=== PATIENT | female | born 1940 | race Caucasian/White ===

== ENCOUNTER → 2018-01-04 | Outpatient (CLI) | payer OTHER ==
[~2018-01-04] MED LIST: LEXISCAN IV ONE
== END ==
LOC: RAD 13:10
PROVIDERS: ATTEND Internal Medicine Cardiovascular Disease
DX: I65.23 Occlusion and stenosis of bilateral carotid arteries (principal); R00.1 Bradycardia, unspecified
CPT/HCPCS: 78452; 93017; A4222; A9502; J2785

== ENCOUNTER 2019-10-18 14:39 | Inpatient (IN) ==
--- NOTE | 2019-10-18 15:13 | DR.FBACK ---
HPI Time Seen Time Seen by Provider: 10/18/19 15:13 PCP Primary Care Physician: KARUNA HPI Comment HPI Comment: PATIENT IS 79YR OLD FEMALE HERE IN ER WITH SEVERE RIGHT LOWER BACK PAIN AND WEAKNESS RLE.SHE INJURED HER LOWER BACK AND SUSTAIN PELVIC FRACTURE 8 WEEKS AGO. IT IS HEALED BY MRI CHECK. SUDDENLY, SHE STARTED WITH SEVERE LOWER RIGHT BACK PAIIN THAT IS GETTING WORSE WITH NAUSEA AND VOMITING. WEAKNESS RT LOWER EXTREMITY ALSO. Complaint Chief Complaint Doctor Comments: RIGHT LOWER BACK PAIN RADIATING DOWN RIGHT LOWER EXTREMITY. Chief Complaint:: PT. HAD A PELVIC FX. 8 WEEKS AGO WHICH SHE STATES HEALED FROM BEDREST FOR 3 WEEKS. PT. HAS C/O OF RIGHT HIP AND LOWER BACK PAIN THAT RADIATES DOWN RIGHT LEG. PT. UNABLE TO WALK DUE TO PAIN. Reviewed Nurses Notes Review: Yes Source History Provided: Patient and EMS Mode of Arrival Mode of Arrival: EMS Timing Onset of Chief Complaint: 10/17/19 Duration Duration: Constant Duration: Days Location Back Pain Location: Right, BACK and Lumbar Radiation To: Right and Thigh Severity Severity: Severe Quality Quality: Sharp Context Onset: Spontaneous Circumstance: Spontaneous History of: denies Chronic Back Pain (RECENT PELVIC FRACTURE.) Modifying Factors Worsened By: Movement Associated Signs and Symptoms Back Pain Symptoms: Nausea and OTHER (RIGHT LOWER BACK PAIN.) Numbness: None, Right, Leg and Thigh Weakness: None, Right, Leg and Thigh PMH PMH Past Medical History: Yes Past Medical History: Dyslipidemia, Hypertension and Hypothyroidism Past Surgical History: Yes Family History History of Family Medical Conditions: Yes Social History Does patient currently use any type of tobacco product: No Have you used tobacco products in the last 12 months: No Type of Tobacco Use: None Does any household member use tobacco: No Alcohol Use: None Do you use any recreational Drugs:: No Lives With: Spouse Lives Where: Home infectious screening In the last 2 months have you had wt loss of >10#?: NO Have you had fever, night sweats or hemotysis?: No Have you traveled outside the country in the last 6 months?: No Isolation: Standard ROS Review of Systems Constitutional: See HPI, Weakness and Fatigue Eyes: No Symptoms Reported and See HPI ENTM: No Symptoms Reported and See HPI Respiratoy: No Symptoms Reported and See HPI; negative Short of Breath and Wheezing Cardiovascular: No Symptoms Reported and See HPI; negative Chest Pain Gastrointestinal/Abdominal: See HPI, Abdominal Pain and Nausea Genitourinary: See HPI and Pain; negative Dysuria, Frequency and Hematuria Neurological: See HPI and Weakness Musculoskeletal: See HPI, Back Pain, Muscle Pain, Pelvis, Hip and Leg Integumentary: No Symptoms Reported and See HPI; negative Change in Color, Rash and Juandice Hematologic/Lymphatic: No Symptoms Reported, See HPI, Easy Bleeding and Easy Bruising; negative Swollen Glands Endocrine: No Symptoms Reported and See HPI; negative Increased Thirst and Increased Urine Psychiatric: No Symptoms Reported and See HPI All Other Systems: Reviewed and Negative PE Vitals Vital Signs: Temp Pulse Pulse Resp BP BP Pulse Ox 10/19/19 00:00 82 145/66 96 10/18/19 23:30 88 144/63 96 10/18/19 22:30 82 104/55 97 10/18/19 22:00 79 103/51 95 10/18/19 21:45 81 115/51 95 10/18/19 20:30 89 130/59 98 10/18/19 20:12 18 10/18/19 20:00 84 117/57 97 10/18/19 19:42 18 10/18/19 19:30 83 120/56 97 10/18/19 19:00 80 121/70 96 10/18/19 18:30 84 138/83 96 10/18/19 18:00 84 17 111/52 96 10/18/19 17:34 81 16 131/58 96 10/18/19 17:00 80 16 168/72 96 10/18/19 16:11 18 10/18/19 14:45 98.8 F 81 17 124/88 97 General Limitations: No Limitations General Appearance: Alert and In No Apparent Distress Head Head Exam: Normal Inspection and Atraumatic Eyes Eye exam: Normal Appearance and PERRL; negative Scleral Icterus and Conjunctival Injection ENT ENT Exam: Normal Exam, Normal Oropharynx, Normal External Ear Exam and TM's Normal Bilaterally Chest Chest Inspection: Normal Inspection and Symmetric Chest Wall Rise; negative Tenderness Respiratory Respiratory Exam: Normal Lung Sounds Bilat; negative Accessory Muscle Use, Chest Wall Tenderness and Respiratory Distress Respiratory Exam: Bilateral: Clear to Auscultation Cardiovascular Cardiovascular Exam: Regular Rate, Normal Rhythm and Normal Heart Sounds; negative Systolic Murmur and Diastolic Murmur Abdominal Exam Abdominal Exam: Normal Bowel Sounds, Soft and Tenderness Abdominal Tenderness: RLQ, LLQ, Suprapubic and Moderate Genitourinary External Exam: Female: Deferred : Speculum Exam (Female): Deferred : Bimanual Exam (female): Deferred Extremities Extremities Exam: Tenderness; negative Full ROM Back Back Exam: Tenderness, (R) CVA Tenderness, (L) CVA Tenderness, Paraspinal Tenderness and Vertebral Tenderness Neurological Neurological Exam: Alert, Oriented X3 and CN II-XII Intact Psychiatric Psychiatric Exam: Normal Affect and Normal Mood Skin Skin Exam: Intact MDM Differential Diagnosis Differential Diagnosis: DJD, Fracture, Musculoskeletal Pain, Pyelonephritis, Strain and Urolithiasis COURSE Treatment Treatment: SEE ORDERS. TORADOL 60MG IM AND NORFLEX 60MG IM. PAIN UNCHANGE. MORPHIN 2MG IV AND ZOFRAN 4MG IV. PAIN IMPROVING. NS 1L AT 125CC/HR. ZOSYN 3.375MG IVPB AND FLAGYL 500MG IV. Consultation Consultation Comments: DISCUSS PATIENT WITH SURGEON, DR. BOYER. PCP TO ADMIT PATIENT AND WILL CONSULT AND TAKE TO SURGERY IN AM. DR. TATUM WILL ADMIT PATIENT. Education/Counseling Education/Counseling: Patient and Family Educated On: Diagnosis ROR Labs Reviewed Laboratory Results Reviewed?: Yes Result Diagrams: 10/21/19 04:19 10/21/19 04:19 Laboratory: 10/19/19 00:15 Blood Blood Culture - Final WBC 24.7 X10^3/uL (3.6-10.0) H 10/18/19 16:40 RBC 4.18 X10^6/uL (3.5-5.4) 10/18/19 16:40 Hgb 12.8 g/dL (12.0-16.0) 10/18/19 16:40 Hct 38.4 % (36.0-47.0) 10/18/19 16:40 MCV 91.8 fL (80.0-100.0) 10/18/19 16:40 MCH 30.6 pg (27.0-34.0) 10/18/19 16:40 MCHC 33.3 g/dL (33.0-35.0) 10/18/19 16:40 RDW 14.5 % (11.6-16.5) 10/18/19 16:40 Plt Count 221 X10^3/uL (150.0-450.0) 10/18/19 16:40 Plt Count Comment Adequate (ADEQUATE) 10/18/19 16:40 MPV 11.2 fL (7.4-11.0) H 10/18/19 16:40 Neut % (Auto) 87.8 % (42.0-75.0) H 10/18/19 16:40 Lymph % (Auto) 3.8 % (21.0-51.0) L 10/18/19 16:40 [place] % (Auto) 5.7 % (0.0-13.0) 10/18/19 16:40 Eos % (Auto) 2.6 % (0.9-2.9) 10/18/19 16:40 Baso % (Auto) 0.1 % (0.2-1.0) L 10/18/19 16:40 Neut # (Auto) 21.7 x10^3/uL (2.2-4.8) H 10/18/19 16:40 Lymph # (Auto) 0.9 X10^3/uL (1.3-2.9) L 10/18/19 16:40 [place] # (Auto) 1.4 x10^3/uL (0.3-0.8) H 10/18/19 16:40 Eos # (Auto) 0.6 x10^3/uL (0.0-0.2) H 10/18/19 16:40 Baso # (Auto) 0.0 X10^3/uL (0.0-0.1) 10/18/19 16:40 Absolute Nucleated RBC 0.0 /100WBC 10/18/19 16:40 Total Counted 100 10/18/19 16:40 Neutrophils % (Manual) 82 % (39-76) H 10/18/19 16:40 Band Neutrophils % 2 % (0-10) 10/18/19 16:40 Lymphocytes % (Manual) 6 % (13-43) L 10/18/19 16:40 Monocytes % (Manual) 8 % (4-9) 10/18/19 16:40 Eosinophils % (Manual) 2 % (0-6) 10/18/19 16:40 Plt Morphology Comment Normal (NORMAL) 10/18/19 16:40 RBC Morphology Normal (NORMAL) 10/18/19 16:40 Sample Site Lr 10/19/19 00:05 ABG pH 7.410 (7.35-7.45) 10/19/19 00:05 ABG pCO2 40.0 mmHg (35.0-45.0) 10/19/19 00:05 ABG pO2 72.0 mmHg (80.0-100.0) L 10/19/19 00:05 ABG HCO3 25.4 mmol/L (22-26) 10/19/19 00:05 ABG O2 Saturation 94.0 % (90-100) 10/19/19 00:05 ABG Base Excess 0.7 mmol/L (-2.0-2.0) 10/19/19 00:05 Rogerio Test P 10/19/19 00:05 A-a Gradient 28.0 mmHg 10/19/19 00:05 FiO2 21.0 10/19/19 00:05 Blood Gas Comments Haim well 10/19/19 00:05 Sodium 135 mmol/L (136-145) L 10/18/19 16:40 Corrected Sodium 136 mmol/L (136-145) 10/18/19 16:40 Potassium 3.8 mmol/L (3.5-5.1) 10/18/19 16:40 Chloride 98 mmol/L (98-107) 10/18/19 16:40 Carbon Dioxide 24.7 mmol/L (21-32) 10/18/19 16:40 BUN 35 mg/dL (7-18) H 10/18/19 16:40 Creatinine 1.23 mg/dL (0.55-1.02) H 10/18/19 16:40 Est GFR (MDRD) Af Amer 54 (>60) L 10/18/19 16:40 Est GFR (MDRD) Non-Af 45 (>60) L 10/18/19 16:40 Glucose 127 mg/dL (65-99) H 10/18/19 16:40 Lactic Acid 0.8 mmol/L (0.4-2.0) 10/19/19 00:15 Calcium 9.1 mg/dL (8.5-10.1) 10/18/19 16:40 Corrected Calcium 10.2 mg/dL (8.5-10.1) H 10/18/19 16:40 Total Bilirubin 0.70 mg/dL (0.2-1.0) 10/18/19 16:40 AST 35 Units/L (15-37) 10/18/19 16:40 ALT 52 Units/L (12-78) 10/18/19 16:40 Alkaline Phosphatase 286 Units/L (46-116) H 10/18/19 16:40 Total Protein 7.0 g/dL (6.4-8.2) 10/18/19 16:40 Albumin 2.6 g/dL (3.4-5.0) L 10/18/19 16:40 Globulin 4.4 g/dL (2.5-4.5) 10/18/19 16:40 Albumin/Globulin Ratio 0.6 Ratio (1.1-2.1) L 10/18/19 16:40 XRAY XRAY Interpreted by: Radiologist and Self (AGREE WITH RADIOLOGIST FINDINGS.) XRAY Findings: REPORT NOTED AND DISCUSSED WITH PATIENT AND FAMILY. Opioid Opioid Risk Tool Age (Rodríguez box if 16-45): No History of Preadolescent Sexual Abuse: No Total: 0 Total Score Risk Category: Low Risk Copyright: Jack MURRAY predicting aberrant behaviors Diagnosis Discharge Problem: Perforated diverticulum, Diverticulitis, Pneumopericardium Sacral fracture Qualifiers: Encounter type: initial encounter Zone of sacrum fracture: unspecified portion of sacrum Fracture type: closed Qualified Code(s): S32.10XA - Unspecified fracture of sacrum, initial encounter for closed fracture Pneumothorax Qualifiers: Pneumothorax type: unspecified pneumothorax Qualified Code(s): J93.9 - Pneumothorax, unspecified
[2019-10-18] MEDS ORDERED: NORFLEX INJ IM ONE (16:02)
[2019-10-18] MEDS ORDERED: TORADOL 60 MG VIAL IM ONE (16:03)
[2019-10-18] MEDS ORDERED: NORFLEX INJ ONE (16:04)
[2019-10-18] MEDS ORDERED: TORADOL 60 MG VIAL ONE (16:04)
--- NOTE | 2019-10-18 16:53 | CT ---
HISTORYFALL X 9 WEEKS AGO, TODAY PT UNABLE TO WALK, RT HIP AND BACK PAINSTUDYLUMBAR SPINE W/O CONCOMPARISONNoneTECHNIQUEMultiple axial images of the lumbar spine were obtained from the thoracolumbar junction to the sacrum without the administration of IV contrast. Sagittal and coronal reformats were performed and reviewed. Dose reduction techniques including Automated Exposure Control (AEC) and adjustment of mA and kV were utilized.FINDINGSOn the car cleaning supervisor film note is made of diffuse vacuum disc space narrowing in the lumbar spine. Alignment of the lumbar spine is maintained. No evidence for acute fracture or subluxation can be identified. No central canal compromise by bony osteophyte formation or soft tissue components can be identified. Mild posterior spondylosis is seen at L1-2 L2-3 L3-4 and L4-5 with marked diffuse vacuum disc space narrowing at all levels of the lumbar spine. No significant facet joint arthropathy can be appreciated. The surrounding paraspinous soft tissues are normal in their noncontrasted appearance. There is no evidence of paraspinal hematoma. There is mild central canal stenosis at L2-3 with an AP diameter of the canal of on 0.9 cm and at L4-5 with an AP diameter of the canal measuring 0.95 cm. This is due to a combination of posterior spondylosis facet hypertrophy and ligamentum flavum hypertrophy not to an acute abnormality. No focal protrusion is observed there is no evidence of a spinal hematoma. There is however perinephric air secondary 2 pneumo mediastinum extending from the lower thorax surrounding the distal esophagus and lower thoracic aorta. There is a small pneumothorax on the right as well. Air is seen dissecting in the retroperitoneum anterior to the aorta into the pelvis there is sigmoid diverticulosis but the air appears to have dissected from above and is not related to diverticulitis. A destructive bone lesion is seen in the right superior pubic ramus that appears to be pre-existing not a traumatic lesion. Air is seen in the anterior urinary bladder is well. This may be from iatrogenic catheterization but no catheter seen in place. No free fluid is seen in the abdomen or pelvis.IMPRESSIONNegative exam of the lumbar spine no acute fractures are observed. There is pre-existing spinal stenosis and marked degenerative disc disease.Of more concern is the large amount of retroperitoneal air dissecting from the posterior mediastinum. A large amount of air seen perinephric on the right and retroperitoneal extending into the pelvis. Further evaluation with a CT of the chest to evaluate chest traumatic injury or chest pathology. The air rather than the prior trauma may be the cause of the back pain. Further evaluation with CT chest abdomen pelvis is recommended. Report will be called to the ordering clinician by our director of operations support at 4:50 p.m.Electronically signed by: RANDALL MC (Oct 18, 2019 16:51:42)
[2019-10-18 16:57] LABS: BASOPHILS % (AUTO) 0.1 % (0.2-1.0); EOSINOPHILS # (AUTO) 0.6 x10^3/uL (0.0-0.2); EOSINOPHILS % (AUTO) 2.6 % (0.9-2.9); HEMATOCRIT 38.4 % (36.0-47.0); HEMOGLOBIN 12.8 g/dL (12.0-16.0); LYMPHOCYTES # (AUTO) 0.9 X10^3/uL (1.3-2.9); LYMPHOCYTES % (AUTO) 3.8 % (21.0-51.0); MEAN CORPUSCULAR HEMOGLOBIN 30.6 pg (27.0-34.0); MEAN CORPUSCULAR HGB CONC 33.3 g/dL (33.0-35.0); MEAN CORPUSCULAR VOLUME 91.8 fL (80.0-100.0); MEAN PLATELET VOLUME 11.2 fL (7.4-11.0); MONOCYTES # (AUTO) 1.4 x10^3/uL (0.3-0.8); MONOCYTES % (AUTO) 5.7 % (0.0-13.0); NEUTROPHILS # (AUTO) 21.7 x10^3/uL (2.2-4.8); NEUTROPHILS % (AUTO) 87.8 % (42.0-75.0); PLATELET COUNT 221 X10^3/uL (150.0-450.0); RED BLOOD COUNT 4.18 X10^6/uL (3.5-5.4); RED CELL DISTRIBUTION WIDTH 14.5 % (11.6-16.5); WHITE BLOOD COUNT 24.7 X10^3/uL (3.6-10.0)
[2019-10-18 17:05] LABS: ALBUMIN 2.6 g/dL (3.4-5.0); CALCIUM 9.1 mg/dL (8.5-10.1); CARBON DIOXIDE 24.7 mmol/L (21-32); COR CA(FOR HYPOALB) 10.2 mg/dL (8.5-10.1); CREATININE 1.23 mg/dL (0.55-1.02)
[2019-10-18 17:28] LABS: BAND NEUTROPHILS % 2 % (0-10)
[2019-10-18 17:29] LABS: PLATELET MORPHOLOGY COMMENT NORMAL (NORMAL)
[2019-10-18] MEDS ORDERED: MORPHINE SULFATE INJ 2 MG INJ IVP ONE (19:30)
[2019-10-18] MEDS ORDERED: ZOFRAN INJ 4 MG VIAL IVP ONE (19:31)
[2019-10-18] MEDS ORDERED: ZOFRAN INJ 4 MG VIAL ONE (19:33)
[2019-10-18] MEDS ORDERED: MORPHINE SULFATE INJ 2 MG INJ ONE (19:34)
[2019-10-18] MEDS ORDERED: NS 100 ML IV 100 ML IV ONE (20:33)
--- NOTE | 2019-10-18 22:35 | CT ---
CT chest ABDOMEN/PELVIS WITH CONIndication: "Retroperitoneal air from mediastinum"Technique: Helical CT images of the chest, abdomen and pelvis were obtained with IV contrast. Reformatted images in the coronal and sagittal planes were also generated for review.Comparison: NoneFindings:Abdomen/pelvis: There is diverticulosis of the sigmoid colon, which appears thickened with subtle pericolonic stranding, most compatible with acute diverticulitis. There is extensive retroperitoneal gas as well as pneumoperitoneum, compatible with perforation. Retroperitoneal gas extends cranially into the mediastinum and dissects along the fascial planes of the imaged lower neck. A trace right posterior basilar pneumothorax is also seen. No organized drainable collection within the abdomen or pelvis is currently identified to suggest abscess.There is gas within the urinary bladder, which could be related to recent catheterization, although underlying colovesicular fistula is not excluded. The remainder of the GI tract is without obstruction or inflammation. The liver, nondistended gallbladder, spleen, pancreas, adrenals and right kidney are unremarkable. A left pelvic kidney is noted. Uterus is absent. No significant free fluid or lymphadenopathy is identified within the abdomen or pelvis.Chest: No significant pericardial effusion is identified. Coronary atherosclerotic disease noted. The thoracic aorta and proximal great vessels are calcified without aneurysm. Central airways are patent. There is no mediastinal or bulky hilar lymphadenopathy. The lungs are essentially clear. No pleural effusion identified.Degenerative changes throughout the spine and pelvis noted. There is also a mildly displaced fracture of the right sacral ala as well as fractures of the right pubic body and inferior right pubic ramus. There is also underlying ill-defined lucency of the bone about the right pubic body fracture, for which an underlying lesion is not excluded.Impression:1. Free intraperitoneal air and extensive retroperitoneal gas, which extends cranially into the mediastinum and imaged inferior neck, the source of which is likely related to acute diverticulitis of the sigmoid colon complicated by perforation. No organized drainable fluid collections are currently identified within the chest, abdomen or pelvis to suggest abscess.2. Gas within the urinary bladder, which could be related to recent catheterization or reflect underlying colovesicular fistula. Clinical as well as lab correlation with urinalysis recommended.3. Fractures of the right sacral ala and right obturator ring as above. There is also ill-defined underlying lucency of the bone within the right pubic body, for which an underlying lesion/pathologic fracture is not entirely excluded. Continued follow-up with radiographs to ensure appropriate healing is recommended.4. Trace right basilar pneumothorax, which is likely related to pleural extension of pneumoperitoneum and retroperitoneal gas. Additional findings as above.Electronically signed by: BIA RUBIO (Oct 18, 2019 22:34:08)
[2019-10-19] MEDS ORDERED: ZOSYN VIAL 3.375 GRAMS 3.375 G in NS 100 ML IV + SPIKE MINIBAG* 100 ML IV ONE (00:01)
[2019-10-19] MEDS ORDERED: NS 1000 ML 1,000 ML ONE (00:08)
[2019-10-19] MEDS ORDERED: FLAGYL IV PREMIX 500 MG BAG 500 MG/100 ML BAG IV ONE ×2 (00:08→04:27)
[2019-10-19 00:26] LABS: ABG BASE EXCESS 0.7 mmol/L (-2.0-2.0); ABG HCO3 25.4 mmol/L (22-26)
[2019-10-19 00:27] LABS: ABG ALLEN TEST P
[2019-10-19] MEDS: NS 1000 ML 1,000 ML IV SCH ×4 (00:56→17:02)
[2019-10-19] MEDS: FLAGYL IV PREMIX 500 MG BAG 500 MG/100 ML BAG IV SCH ×5 (00:56→20:48)
[2019-10-19 01:49] LABS: BILIRUBIN,URINE NEGATIVE (NEGATIVE); BLOOD/HEMOGLOBIN,URINE 1+ (NEGATIVE); GLUCOSE, URINE NEGATIVE (NEGATIVE); KETONES,URINE NEGATIVE (NEGATIVE); LEUKOCYTE ESTERASE ,URINE 1+ (NEGATIVE); NITRITES,URINE POSITIVE (NEGATIVE); PROTEIN,URINE 2+ (NEGATIVE); UROBILINOGEN,URINE NORMAL (NORMAL)
[2019-10-19 02:08] LABS: APPEARANCE,URINE SLIGHTLY HAZY (CLEAR); BACTERIA,URINE 1+ /HPF (NEGATIVE); COLOR,URINE DARK YELLOW (YELLOW); RBC,URINE 0-2 /HPF (0-3); SQUAMOUS EPITHELIAL CELL,UR RARE /HPF (NEGATIVE)
[2019-10-19] MEDS ORDERED: ZOSYN VIAL 3.375 GRAMS IV ONE (03:05)
[2019-10-19] MEDS ORDERED: NS 100 ML IV + SPIKE MINIBAG* 100 ML IV ONE (03:05)
[2019-10-19 03:54] VITALS: BMI 30.3
[2019-10-19 06:37] LABS: ALANINE AMINOTRANSFERASE 43 Units/L (12-78); ALBUMIN 2.1 g/dL (3.4-5.0); ALKALINE PHOSPHATASE 257 Units/L (46-116); ASPARTATE AMINO TRANSFERASE 35 Units/L (15-37); BLOOD UREA NITROGEN 25 mg/dL (7-18); CALCIUM 8.7 mg/dL (8.5-10.1); CARBON DIOXIDE 23.3 mmol/L (21-32); CHLORIDE 101 mmol/L (98-107); COR CA(FOR HYPOALB) 10.2 mg/dL (8.5-10.1); CREATININE 0.94 mg/dL (0.55-1.02); MAGNESIUM 2.1 mg/dL (1.7-2.9); SODIUM 135 mmol/L (136-145); TOTAL PROTEIN 6.2 g/dL (6.4-8.2); eGFR NON BLACK RACES > 60 (>60)
[2019-10-19 06:52] LABS: BASOPHILS % (AUTO) 0.1 % (0.2-1.0); EOSINOPHILS # (AUTO) 0.5 x10^3/uL (0.0-0.2); EOSINOPHILS % (AUTO) 2.6 % (0.9-2.9); HEMATOCRIT 35.4 % (36.0-47.0); HEMOGLOBIN 11.8 g/dL (12.0-16.0); LYMPHOCYTES # (AUTO) 0.8 X10^3/uL (1.3-2.9); LYMPHOCYTES % (AUTO) 4.3 % (21.0-51.0); MEAN CORPUSCULAR HEMOGLOBIN 30.5 pg (27.0-34.0); MEAN CORPUSCULAR HGB CONC 33.3 g/dL (33.0-35.0); MEAN CORPUSCULAR VOLUME 91.7 fL (80.0-100.0); MEAN PLATELET VOLUME 11.8 fL (7.4-11.0); MONOCYTES # (AUTO) 1.1 x10^3/uL (0.3-0.8); MONOCYTES % (AUTO) 5.9 % (0.0-13.0); NEUTROPHILS # (AUTO) 16.5 x10^3/uL (2.2-4.8); NEUTROPHILS % (AUTO) 87.1 % (42.0-75.0); PLATELET COUNT 164 X10^3/uL (150.0-450.0); RED BLOOD COUNT 3.86 X10^6/uL (3.5-5.4); RED CELL DISTRIBUTION WIDTH 14.2 % (11.6-16.5)
[2019-10-19] MEDS: TOPROL XL PO SCH (08:45)
[2019-10-19] MEDS: NORVASC TAB 5 MG PO SCH (08:45)
[2019-10-19] MEDS ORDERED: SYNTHROID 100 mcg TAB PO SCH (09:00)
[2019-10-19] MEDS ORDERED: PATIENT'S HOME MEDICATION (Umeclidinium-Vilanterol [Anoro Ellipta] 1 INH) IN SCH (09:00)
--- NOTE | 2019-10-19 10:04 | RAD ---
HISTORYpneumothoraxSTUDYCHEST, 1 VIEWCOMPARISONNo priorsFINDINGSThe trachea is midline. There is subcutaneous emphysema present involving the paratracheal regions, more so on the right. There is evidence of pneumomediastinum in a small right basilar subpulmonic pneumothorax. No evidence of tension is seen. Both lungs are clear. Heart size is upper normal with aortic uncoiling. There is evidence of a pneumoperitoneum. Osseous structures are intact.IMPRESSIONPneumomediastinum, pneumoperitoneum and small subpulmonic right-sided pneumothorax without tension. Lungs are clear.Electronically signed by: MELODIE PLATA (Oct 19, 2019 10:02:20)
--- NOTE | 2019-10-19 10:27 | DR.PROGNOT ---
Hospital Progress Notes - Progress Note for Day of: Progress Note Date: 10/19/19 - Chief Complaint Chief Complaint: lower back pain . Rt leg pain extending to the foot ( needle like pain ). mild lower abdominal pain . no nausea or vomiting. WBC 19. alk phos 257. BUN/Creat 25/0.94 - Past Medical Family Social History Past Med/Fam/Surg Hx: No changes since H&P Allergies: Allergies No Known Drug Allergies Allergy (Verified 10/18/19 14:44) - Review Of Systems ROS: No change since H&P - Vital Signs Vital Signs: Temperature 98.1 F Pulse Rate [Left Brachial] 85 Pulse Rate 80 Respiratory Rate 18 Blood Pressure [Left Arm] 121/59 Blood Pressure 138/62 O2 Sat by Pulse Oximetry 96 - Physical Exam Oriented: Normal Eyes: Normal Ear: Normal Nose: Normal Throat: Normal (mild throat congestion .) Cardiovascular: Normal : Normal GI:Auscultation: Normal GI:Palpation: Normal GI: Tenderness: Other (mild to moderate lower abdomial tenderness , no rebound or rigidity , BS +) Skin: Normal (moderate to severe tenderness with LLOYD on the RT with normal ROM and sensation .) Speech Pattern: Clear, Appropriate - Laboratory and Diagnostics Result Diagrams: 10/19/19 05:53 10/19/19 05:53 Labs: Laboratory WBC 19.0 X10^3/uL (3.6-10.0) H 10/19/19 05:53 RBC 3.86 X10^6/uL (3.5-5.4) 10/19/19 05:53 Hgb 11.8 g/dL (12.0-16.0) L 10/19/19 05:53 Hct 35.4 % (36.0-47.0) L 10/19/19 05:53 MCV 91.7 fL (80.0-100.0) 10/19/19 05:53 MCH 30.5 pg (27.0-34.0) 10/19/19 05:53 MCHC 33.3 g/dL (33.0-35.0) 10/19/19 05:53 RDW 14.2 % (11.6-16.5) 10/19/19 05:53 Plt Count 164 X10^3/uL (150.0-450.0) 10/19/19 05:53 Plt Count Comment Adequate (ADEQUATE) 10/18/19 16:40 MPV 11.8 fL (7.4-11.0) H 10/19/19 05:53 Neut % (Auto) 87.1 % (42.0-75.0) H 10/19/19 05:53 Lymph % (Auto) 4.3 % (21.0-51.0) L 10/19/19 05:53 Pepin % (Auto) 5.9 % (0.0-13.0) 10/19/19 05:53 Eos % (Auto) 2.6 % (0.9-2.9) 10/19/19 05:53 Baso % (Auto) 0.1 % (0.2-1.0) L 10/19/19 05:53 Neut # (Auto) 16.5 x10^3/uL (2.2-4.8) H 10/19/19 05:53 Lymph # (Auto) 0.8 X10^3/uL (1.3-2.9) L 10/19/19 05:53 Pepin # (Auto) 1.1 x10^3/uL (0.3-0.8) H 10/19/19 05:53 Eos # (Auto) 0.5 x10^3/uL (0.0-0.2) H 10/19/19 05:53 Baso # (Auto) 0.0 X10^3/uL (0.0-0.1) 10/19/19 05:53 Absolute Nucleated RBC 0.0 /100WBC 10/19/19 05:53 Total Counted 100 10/18/19 16:40 Neutrophils % (Manual) 82 % (39-76) H 10/18/19 16:40 Band Neutrophils % 2 % (0-10) 10/18/19 16:40 Lymphocytes % (Manual) 6 % (13-43) L 10/18/19 16:40 Monocytes % (Manual) 8 % (4-9) 10/18/19 16:40 Eosinophils % (Manual) 2 % (0-6) 10/18/19 16:40 Plt Morphology Comment Normal (NORMAL) 10/18/19 16:40 RBC Morphology Normal (NORMAL) 10/18/19 16:40 PT 15.3 SECONDS (11.8-14.3) 10/19/19 05:53 INR Target Range - 10/19/19 05:53 INR 1.26 (0.8-1.3) 10/19/19 05:53 APTT 24.5 SECONDS (22.9-36.5) 10/19/19 05:53 PTT Comment - 10/19/19 05:53 Sample Site Lr 10/19/19 00:05 ABG pH 7.410 (7.35-7.45) 10/19/19 00:05 ABG pCO2 40.0 mmHg (35.0-45.0) 10/19/19 00:05 ABG pO2 72.0 mmHg (80.0-100.0) L 10/19/19 00:05 ABG HCO3 25.4 mmol/L (22-26) 10/19/19 00:05 ABG O2 Saturation 94.0 % (90-100) 10/19/19 00:05 ABG Base Excess 0.7 mmol/L (-2.0-2.0) 10/19/19 00:05 Rogerio Test P 10/19/19 00:05 A-a Gradient 28.0 mmHg 10/19/19 00:05 FiO2 21.0 10/19/19 00:05 Blood Gas Comments Haim well 10/19/19 00:05 Sodium 135 mmol/L (136-145) L 10/19/19 05:53 Corrected Sodium TNP 10/19/19 05:53 Potassium 3.9 mmol/L (3.5-5.1) 10/19/19 05:53 Chloride 101 mmol/L (98-107) 10/19/19 05:53 Carbon Dioxide 23.3 mmol/L (21-32) 10/19/19 05:53 BUN 25 mg/dL (7-18) H 10/19/19 05:53 Creatinine 0.94 mg/dL (0.55-1.02) 10/19/19 05:53 Est GFR (MDRD) Af Amer > 60 (>60) 10/19/19 05:53 Est GFR (MDRD) Non-Af > 60 (>60) 10/19/19 05:53 Glucose 91 mg/dL (65-99) 10/19/19 05:53 Lactic Acid 0.8 mmol/L (0.4-2.0) 10/19/19 00:15 Calcium 8.7 mg/dL (8.5-10.1) 10/19/19 05:53 Corrected Calcium 10.2 mg/dL (8.5-10.1) H 10/19/19 05:53 Magnesium 2.1 mg/dL (1.7-2.9) 10/19/19 05:53 Total Bilirubin 0.60 mg/dL (0.2-1.0) 10/19/19 05:53 AST 35 Units/L (15-37) 10/19/19 05:53 ALT 43 Units/L (12-78) 10/19/19 05:53 Alkaline Phosphatase 257 Units/L (46-116) H 10/19/19 05:53 Total Protein 6.2 g/dL (6.4-8.2) L 10/19/19 05:53 Albumin 2.1 g/dL (3.4-5.0) L 10/19/19 05:53 Globulin 4.1 g/dL (2.5-4.5) 10/19/19 05:53 Albumin/Globulin Ratio 0.5 Ratio (1.1-2.1) L 10/19/19 05:53 Specimen Type Catherized urine 10/19/19 01:40 Urine Color Dark yellow (YELLOW) 10/19/19 01:40 Urine Appearance Slightly hazy (CLEAR) 10/19/19 01:40 Urine pH 6.0 (5.0 - 8.0) 10/19/19 01:40 Ur Specific [place] 1.010 (1.000-1.030) 10/19/19 01:40 Urine Protein 2+ (NEGATIVE) 10/19/19 01:40 Urine Glucose (UA) Negative (NEGATIVE) 10/19/19 01:40 Urine Ketones Negative (NEGATIVE) 10/19/19 01:40 Urine Occult Blood 1+ (NEGATIVE) 10/19/19 01:40 Urine Nitrite Positive (NEGATIVE) 10/19/19 01:40 Urine Bilirubin Negative (NEGATIVE) 10/19/19 01:40 Urine Urobilinogen Normal (NORMAL) 10/19/19 01:40 Ur Leukocyte Esterase 1+ (NEGATIVE) 10/19/19 01:40 Urine RBC 0-2 /HPF (0-3) 10/19/19 01:40 Urine WBC 3-5 /HPF (0-5) 10/19/19 01:40 Ur Squamous Epith Cells Rare /HPF (NEGATIVE) 10/19/19 01:40 Urine Bacteria 1+ /HPF (NEGATIVE) 10/19/19 01:40 Ur Culture Indicated? Yes/culture set up 10/19/19 01:40 - Assessment and Plan 1: severe lower back pain ,. radiculopathy Rt leg . large pneunomoretroperitoneam and pneumomediastinum. possible diverticulitis and questiobable perforation . no peritonitis now . will keep on IV ATB and close observation . if having more abdominal pain with peritonitis will proceed with colostomy .
[2019-10-19] MEDS ORDERED: ZANAFLEX PO PRN (13:59)
--- NOTE | 2019-10-19 14:02 | DR.H&P ---
H&P - History & Physical for Day of: H&P Date: 10/19/19 - Chief Complaint Chief Complaint: severe lower back pain, right lower abd, hip, leg pain - History of Present Illness History of Present Illness: PT IS 79 WF ER ADMISSION AFTER PRESENTING WITH CO HAD A PELVIC FX. 8 WEEKS AGO WHICH SHE STATES HEALED FROM BEDREST FOR 3 WEEKS. PT. HAS C/O OF RIGHT HIP AND LOWER BACK PAIN THAT RADIATES DOWN RIGHT LEG. PT. UNABLE TO WALK DUE TO PAIN. PT REPORTS SHE HAS NOT HAD BM SINCE OVER 1 WEEK AGO. PT HAD PMH OF HTN, PREVIOUS SMOKER QUIT [address] A[address] PT HAD [address] IN ER REVEALING DIVERTICULITIS WITH POSSIBLE PERFORATION. PT ADMITTED TO ICU, DR BOYER CONSULTED - Past Medical History Past Medical History: Hypertension, Dyslipidemia, Hypothyroidism - Past Surgical History Surgical History: Carotid Endarterectomy, Mastectomy, Other - Family History Family Medical History: Diabetes Mellitus, Cancer, Hypertension - Social History Does patient currently use any type of tobacco product: No Have you used tobacco products in the last 12 months: No Type of Tobacco Use: None Does any household member use tobacco: No Alcohol Use: None Drug Use: None - Medications Home Medications: No Known Drug Allergies Allergy (Verified 10/18/19 14:44) CONTINUE taking the following medications acetaminophen-codeine 1 tab PO Q6HR PRN 10/18/19 [History] amlodipine 5 mg PO DAILY 10/18/19 [History] atorvastatin 80 mg PO HS 10/18/19 [History] levothyroxine [Synthroid] 0.1 mcg PO DAILY 10/18/19 [History] metoprolol succinate 50 mg PO DAILY 10/18/19 [History] tramadol 50 mg PO QID PRN 10/18/19 [History] umeclidinium-vilanterol [Anoro Ellipta] 1 inh INHALATION DAILY 10/18/19 [History] - Review of Systems Constitutional: Weakness, Malaise ENT: No Symptoms Reported Respiratory: No Symptoms Reported Cardiovascular: No Symptoms Reported Gastrointestinal: Nausea, Abdominal Pain, Constipation Genitourinary: No Symptoms Reported Musculoskeletal: Back Pain, Leg Pain Skin: No Symptoms Reported Neurological: No Symptoms Reported - Physical Exam Vital Signs: Temperature 98.1 F Pulse Rate [Left Brachial] 85 Pulse Rate 77 Respiratory Rate 18 Blood Pressure [Left Arm] 121/59 Blood Pressure 136/61 O2 Sat by Pulse Oximetry 97 Oriented: Normal Eyes: Normal Ear: Normal Nose: Normal Throat: Normal Respiratory: Wheezes Throughout (MILD UPPER EXPIRATORY WHEEZES), RLL Diminished, LLL Diminished Cardiovascular: Normal : Normal Auscultation: Bowel Sounds: Normal Palpation: Normal Tenderness: Diffuse, RLQ, LUQ Skin: Decreased Turgur Musculoskeletal: Right, Leg, Back:Thoracic, Back:Lumbar Psychiatric: Anxiety Affect: Anxious Speech Pattern: Clear, Appropriate - Assessment/Plan (1) Acute diverticulitis Status: Acute Plan: NPO UNTIL SURGICAL CONSULT. BP CONTROL, CARDIAC MONITORING. VERIFY HOME MEDICATION, GENTLE IV HYDRATION, PAIN CONTROL. AM LABS, CBC CMP CXR. CT ABD PELVIS ON ADMISSION, BEDREST (2) Pelvic fracture Status: Acute (3) Degenerative joint disease (DJD) of lumbar spine Status: Acute (4) Hypertension Status: Acute - Allergies Allergies/Adverse Reactions: Allergies Allergy/AdvReac Type Severity Reaction Status Date / Time No Known Drug Allergies Allergy Verified 10/18/19 14:44
[2019-10-19] MEDS: ZOFRAN INJ 4 MG VIAL IVP PRN (14:51)
[2019-10-19] MEDS: MORPHINE SULFATE INJ 2 MG INJ IVP PRN (14:51)
[2019-10-19] MEDS: SYNTHROID 100 mcg TAB PO SCH (16:54)
[2019-10-19] MEDS ORDERED: TYLENOL 325 MG TAB PO PRN (20:32)
[2019-10-19] MEDS ORDERED: TYLENOL 325 MG TAB PO ONE (20:34)
[2019-10-19] MEDS: LIPITOR TAB 40 MG PO SCH (20:48)
[2019-10-20] MEDS: ZOFRAN INJ 4 MG VIAL IVP PRN ×2 (00:17→08:58)
[2019-10-20] MEDS: FLAGYL IV PREMIX 500 MG BAG 500 MG/100 ML BAG IV SCH ×4 (02:55→21:36)
[2019-10-20] MEDS: NS 1000 ML 1,000 ML IV SCH ×4 (05:30→18:30)
[2019-10-20 05:34] LABS: BASOPHILS % (AUTO) 0.2 % (0.2-1.0); EOSINOPHILS # (AUTO) 0.2 x10^3/uL (0.0-0.2); EOSINOPHILS % (AUTO) 1.1 % (0.9-2.9); HEMATOCRIT 32.3 % (36.0-47.0); HEMOGLOBIN 10.9 g/dL (12.0-16.0); LYMPHOCYTES # (AUTO) 0.7 X10^3/uL (1.3-2.9); LYMPHOCYTES % (AUTO) 4.2 % (21.0-51.0); MEAN CORPUSCULAR HEMOGLOBIN 30.1 pg (27.0-34.0); MEAN CORPUSCULAR HGB CONC 33.8 g/dL (33.0-35.0); MEAN CORPUSCULAR VOLUME 89.2 fL (80.0-100.0); MEAN PLATELET VOLUME 10.1 fL (7.4-11.0); MONOCYTES # (AUTO) 0.9 x10^3/uL (0.3-0.8); MONOCYTES % (AUTO) 5.3 % (0.0-13.0); NEUTROPHILS # (AUTO) 14.5 x10^3/uL (2.2-4.8); NEUTROPHILS % (AUTO) 89.2 % (42.0-75.0); PLATELET COUNT 227 X10^3/uL (150.0-450.0); RED BLOOD COUNT 3.62 X10^6/uL (3.5-5.4); RED CELL DISTRIBUTION WIDTH 14.2 % (11.6-16.5); WHITE BLOOD COUNT 16.2 X10^3/uL (3.6-10.0)
[2019-10-20 05:45] LABS: ALANINE AMINOTRANSFERASE 39 Units/L (12-78); ALBUMIN 1.9 g/dL (3.4-5.0); ALKALINE PHOSPHATASE 219 Units/L (46-116); ASPARTATE AMINO TRANSFERASE 26 Units/L (15-37); BLOOD UREA NITROGEN 15 mg/dL (7-18); CALCIUM 8.4 mg/dL (8.5-10.1); CARBON DIOXIDE 26.1 mmol/L (21-32); CHLORIDE 103 mmol/L (98-107); COR CA(FOR HYPOALB) 10.1 mg/dL (8.5-10.1); COR NA(FOR HYPERGLY) 139 mmol/L (136-145); CREATININE 0.72 mg/dL (0.55-1.02); SODIUM 139 mmol/L (136-145); TOTAL PROTEIN 5.6 g/dL (6.4-8.2); eGFR NON BLACK RACES > 60 (>60)
--- NOTE | 2019-10-20 06:24 | RAD ---
HISTORYFollow-up pneumothoraxSTUDYCHEST, 1 [id number] heart is within normal limits in size. The aorta is calcified. No congestive heart failure or infiltrates identified. Residual pneumomediastinum is identified as is some subcutaneous emphysema in the right lateral neck. Small right basilar pneumothorax is still present. Bony thorax is unremarkable.IMPRESSIONNo significant change from the prior examinationElectronically signed by: JESUSITA OLIVAS (Oct 20, 2019 06:23:14)
[2019-10-20] MEDS ORDERED: KLOR-CON PO PRN (06:34)
[2019-10-20] MEDS ORDERED: POTASSIUM CHLORIDE LIQ 20 MEQ UDC PO PRN (06:34)
[2019-10-20] MEDS ORDERED: K-DUR TAB 20 MEQ PO PRN (06:34)
[2019-10-20] MEDS ORDERED: POTASSIUM CHL 60 MEQ/NS 0.45% 500 ML IV PRN (06:34)
[2019-10-20] MEDS ORDERED: POTASSIUM CHL 40 MEQ/NS 0.45% 500 ML IV PRN (06:34)
[2019-10-20] MEDS ORDERED: MICRO K EXTEN CAP 10 MEQ PO PRN (06:34)
[2019-10-20] MEDS: MAGNESIUM SULFATE 1 GRAM/100 mL PREMIX 1 GM/100 ML BAG IV PRN ×2 (08:35→10:28)
[2019-10-20] MEDS ORDERED: DIPRIVAN VIAL ONE (09:05)
[2019-10-20] MEDS ORDERED: XYLOCAINE 1 % (PLAIN) ONE (09:05)
[2019-10-20] MEDS ORDERED: APRESOLINE INJ 20 MG VIAL IVP PRN (09:34)
[2019-10-20] MEDS ORDERED: LOVENOX INJ 40 MG SYR SC SCH (10:00)
--- NOTE | 2019-10-20 10:04 | RAD ---
HISTORYPERFORATED DIVERTICULITIS right sacral fractureSTUDYKUBCOMPARISONCT scan of the abdomen and pelvis done 10/18/2019.FINDINGSThere is again evidence of pneumoperitoneum. A small right basilar pneumothorax is present. There is again evidence of pneumo mediastinum. Contrast material is present within the colon. No evidence of bowel obstruction is seen. There is partial obscuration of the right sacral fracture. Degenerative changes are present involving the lower lumbar spine.IMPRESSIONPneumoperitoneum and right basilar pneumothorax. There is evidence of pneumomediastinum.There is some residual contrast material present within the colon. No bowel obstruction is seen.Electronically signed by: MELODIE PLATA (Oct 20, 2019 10:03:48)
[2019-10-20] MEDS: PROTONIX INJ 40 MG VIAL IVP SCH ×2 (10:21→21:36)
[2019-10-20] MEDS: NORVASC TAB 5 MG PO SCH (10:43)
[2019-10-20] MEDS: TOPROL XL PO SCH (10:43)
--- NOTE | 2019-10-20 11:16 | DR.PROGNOT ---
Hospital Progress Notes - Progress Note for Day of: Progress Note Date: 10/20/19 - Chief Complaint Chief Complaint: had several episodes of vomiting last night . c/o mild abdominal pain . had normal BM last night , no bleeding . WBC 16.2. K 3.2. BUN/Creat normal . KUB still showing free air and pneumoretroperitonium . - Past Medical Family Social History Past Med/Fam/Surg Hx: No changes since H&P Allergies: Allergies No Known Drug Allergies Allergy (Verified 10/18/19 14:44) - Review Of Systems ROS: No change since H&P - Vital Signs Vital Signs: Temperature 97.0 F Pulse Rate [Left Brachial] 85 Pulse Rate 98 Respiratory Rate 26 Blood Pressure [Left Arm] 121/59 Blood Pressure 196/81 O2 Sat by Pulse Oximetry 95 - Physical Exam Oriented: Normal Eyes: Normal Ear: Normal Nose: Normal Throat: Normal Cardiovascular: Normal : Normal GI:Auscultation: Normal GI:Palpation: Normal GI: Tenderness: Diffuse (mild diffuse abdominal tenderness , no rebound or rigidity , BS +), RLQ, LUQ Skin: Decreased Turgur Musculoskeletal: Right, Leg, Back:Thoracic, Back:Lumbar Psychiatric: Anxiety Affect: Anxious Speech Pattern: Clear, Appropriate - Laboratory and Diagnostics Result Diagrams: 10/20/19 05:10 10/20/19 05:10 Labs: 10/19/19 01:40 Urine,Catheterized Urine Culture - Preliminary Laboratory WBC 16.2 X10^3/uL (3.6-10.0) H 10/20/19 05:10 RBC 3.62 X10^6/uL (3.5-5.4) 10/20/19 05:10 Hgb 10.9 g/dL (12.0-16.0) L 10/20/19 05:10 Hct 32.3 % (36.0-47.0) L 10/20/19 05:10 MCV 89.2 fL (80.0-100.0) 10/20/19 05:10 MCH 30.1 pg (27.0-34.0) 10/20/19 05:10 MCHC 33.8 g/dL (33.0-35.0) 10/20/19 05:10 RDW 14.2 % (11.6-16.5) 10/20/19 05:10 Plt Count 227 X10^3/uL (150.0-450.0) 10/20/19 05:10 Plt Count Comment Adequate (ADEQUATE) 10/18/19 16:40 MPV 10.1 fL (7.4-11.0) 10/20/19 05:10 Neut % (Auto) 89.2 % (42.0-75.0) H 10/20/19 05:10 Lymph % (Auto) 4.2 % (21.0-51.0) L 10/20/19 05:10 [place] % (Auto) 5.3 % (0.0-13.0) 10/20/19 05:10 Eos % (Auto) 1.1 % (0.9-2.9) 10/20/19 05:10 Baso % (Auto) 0.2 % (0.2-1.0) 10/20/19 05:10 Neut # (Auto) 14.5 x10^3/uL (2.2-4.8) H 10/20/19 05:10 Lymph # (Auto) 0.7 X10^3/uL (1.3-2.9) L 10/20/19 05:10 [place] # (Auto) 0.9 x10^3/uL (0.3-0.8) H 10/20/19 05:10 Eos # (Auto) 0.2 x10^3/uL (0.0-0.2) 10/20/19 05:10 Baso # (Auto) 0.0 X10^3/uL (0.0-0.1) 10/20/19 05:10 Absolute Nucleated RBC 0.0 /100WBC 10/20/19 05:10 Total Counted 100 10/18/19 16:40 Neutrophils % (Manual) 82 % (39-76) H 10/18/19 16:40 Band Neutrophils % 2 % (0-10) 10/18/19 16:40 Lymphocytes % (Manual) 6 % (13-43) L 10/18/19 16:40 Monocytes % (Manual) 8 % (4-9) 10/18/19 16:40 Eosinophils % (Manual) 2 % (0-6) 10/18/19 16:40 Plt Morphology Comment Normal (NORMAL) 10/18/19 16:40 RBC Morphology Normal (NORMAL) 10/18/19 16:40 PT 15.3 SECONDS (11.8-14.3) 10/19/19 05:53 INR Target Range - 10/19/19 05:53 INR 1.26 (0.8-1.3) 10/19/19 05:53 APTT 24.5 SECONDS (22.9-36.5) 10/19/19 05:53 PTT Comment - 10/19/19 05:53 Sample Site Lr 10/19/19 00:05 ABG pH 7.410 (7.35-7.45) 10/19/19 00:05 ABG pCO2 40.0 mmHg (35.0-45.0) 10/19/19 00:05 ABG pO2 72.0 mmHg (80.0-100.0) L 10/19/19 00:05 ABG HCO3 25.4 mmol/L (22-26) 10/19/19 00:05 ABG O2 Saturation 94.0 % (90-100) 10/19/19 00:05 ABG Base Excess 0.7 mmol/L (-2.0-2.0) 10/19/19 00:05 Rogerio Test P 10/19/19 00:05 A-a Gradient 28.0 mmHg 10/19/19 00:05 FiO2 21.0 10/19/19 00:05 Blood Gas Comments Haim well 10/19/19 00:05 Sodium 139 mmol/L (136-145) 10/20/19 05:10 Corrected Sodium 139 mmol/L (136-145) 10/20/19 05:10 Potassium 3.2 mmol/L (3.5-5.1) L 10/20/19 05:10 Chloride 103 mmol/L (98-107) 10/20/19 05:10 Carbon Dioxide 26.1 mmol/L (21-32) 10/20/19 05:10 BUN 15 mg/dL (7-18) 10/20/19 05:10 Creatinine 0.72 mg/dL (0.55-1.02) 10/20/19 05:10 Est GFR (MDRD) Af Amer > 60 (>60) 10/20/19 05:10 Est GFR (MDRD) Non-Af > 60 (>60) 10/20/19 05:10 Glucose 120 mg/dL (65-99) H 10/20/19 05:10 Lactic Acid 0.8 mmol/L (0.4-2.0) 10/19/19 00:15 Calcium 8.4 mg/dL (8.5-10.1) L 10/20/19 05:10 Corrected Calcium 10.1 mg/dL (8.5-10.1) 10/20/19 05:10 Magnesium 1.7 mg/dL (1.7-2.9) 10/20/19 05:10 Total Bilirubin 0.60 mg/dL (0.2-1.0) 10/20/19 05:10 AST 26 Units/L (15-37) 10/20/19 05:10 ALT 39 Units/L (12-78) 10/20/19 05:10 Alkaline Phosphatase 219 Units/L (46-116) H 10/20/19 05:10 Total Protein 5.6 g/dL (6.4-8.2) L 10/20/19 05:10 Albumin 1.9 g/dL (3.4-5.0) L 10/20/19 05:10 Globulin 3.7 g/dL (2.5-4.5) 10/20/19 05:10 Albumin/Globulin Ratio 0.5 Ratio (1.1-2.1) L 10/20/19 05:10 Specimen Type Catherized urine 10/19/19 01:40 Urine Color Dark yellow (YELLOW) 10/19/19 01:40 Urine Appearance Slightly hazy (CLEAR) 10/19/19 01:40 Urine pH 6.0 (5.0 - 8.0) 10/19/19 01:40 Ur Specific [place] 1.010 (1.000-1.030) 10/19/19 01:40 Urine Protein 2+ (NEGATIVE) 10/19/19 01:40 Urine Glucose (UA) Negative (NEGATIVE) 10/19/19 01:40 Urine Ketones Negative (NEGATIVE) 10/19/19 01:40 Urine Occult Blood 1+ (NEGATIVE) 10/19/19 01:40 Urine Nitrite Positive (NEGATIVE) 10/19/19 01:40 Urine Bilirubin Negative (NEGATIVE) 10/19/19 01:40 Urine Urobilinogen Normal (NORMAL) 10/19/19 01:40 Ur Leukocyte Esterase 1+ (NEGATIVE) 10/19/19 01:40 Urine RBC 0-2 /HPF (0-3) 10/19/19 01:40 Urine WBC 3-5 /HPF (0-5) 10/19/19 01:40 Ur Squamous Epith Cells Rare /HPF (NEGATIVE) 10/19/19 01:40 Urine Bacteria 1+ /HPF (NEGATIVE) 10/19/19 01:40 Ur Culture Indicated? Yes/culture set up 10/19/19 01:40 - Assessment and Plan 1: severe nausea and vomiting coffee ground material last night . severe lower back pain ,. radiculopathy Rt leg . large pneunomoretroperitoneam and pneumomediastinum. possible diverticulitis and questiobable perforation . with the vomiting and possibility of DU will do EGD today . will keep on IV ATB and close observation . - Problem Patient Problems: Patient Problems Acute diverticulitis (Acute) K57.92 Pelvic fracture (Acute) S32.9XXA Degenerative joint disease (DJD) of lumbar spine (Acute) M47.816 Hypertension (Acute) I10
[2019-10-20] MEDS ORDERED: DIPRIVAN VIAL 40 ML ONE (11:37)
--- NOTE | 2019-10-20 13:22 | RAD ---
HISTORYNG tube placementSTUDYKUBCOMPARISONNoneFINDINGSThere is a nasogastric tube with its tip and side hole within the stomach. The abdominal gas pattern is nonspecific.IMPRESSIONNG tube and side hole in the expected position of the stomachElectronically signed by: JESUSITA OLIVAS (Oct 20, 2019 13:21:01)
[2019-10-20] MEDS: ZOSYN VIAL 3.375 GRAMS 3.375 G in NS 100 ML IV + SPIKE MINIBAG* 100 ML IV SCH ×3 (14:38→21:50)
[2019-10-20 14:49] LABS: GASTRIC OCCULT BLOOD POSITIVE (NEGATIVE)
[2019-10-20 16:29] LABS: HEMATOCRIT 30.8 % (36.0-47.0); HEMOGLOBIN 10.2 g/dL (12.0-16.0)
[2019-10-20] MEDS: SYNTHROID 100 mcg TAB PO SCH (17:24)
[2019-10-20] MEDS ORDERED: XYLOCAINE 2 % (PLAIN) ONE (17:50)
[2019-10-20] MEDS: MORPHINE SULFATE INJ 2 MG INJ IVP PRN (18:20)
[2019-10-20 18:41] LABS: BASOPHILS % (AUTO) 0.3 % (0.2-1.0); EOSINOPHILS # (AUTO) 0.2 x10^3/uL (0.0-0.2); EOSINOPHILS % (AUTO) 1.5 % (0.9-2.9); HEMATOCRIT 26.2 % (36.0-47.0); HEMOGLOBIN 8.8 g/dL (12.0-16.0); LYMPHOCYTES # (AUTO) 0.9 X10^3/uL (1.3-2.9); LYMPHOCYTES % (AUTO) 7.3 % (21.0-51.0); MEAN CORPUSCULAR HEMOGLOBIN 30.3 pg (27.0-34.0); MEAN CORPUSCULAR HGB CONC 33.7 g/dL (33.0-35.0); MEAN CORPUSCULAR VOLUME 90.1 fL (80.0-100.0); MEAN PLATELET VOLUME 9.7 fL (7.4-11.0); MONOCYTES # (AUTO) 0.8 x10^3/uL (0.3-0.8); MONOCYTES % (AUTO) 6.4 % (0.0-13.0); NEUTROPHILS % (AUTO) 84.5 % (42.0-75.0); PLATELET COUNT 214 X10^3/uL (150.0-450.0); RED BLOOD COUNT 2.91 X10^6/uL (3.5-5.4); RED CELL DISTRIBUTION WIDTH 14.2 % (11.6-16.5)
[2019-10-20 18:57] LABS: ALANINE AMINOTRANSFERASE 32 Units/L (12-78); ALBUMIN 1.6 g/dL (3.4-5.0); ALKALINE PHOSPHATASE 181 Units/L (46-116); ASPARTATE AMINO TRANSFERASE 27 Units/L (15-37); BLOOD UREA NITROGEN 19 mg/dL (7-18); CALCIUM 7.8 mg/dL (8.5-10.1); CARBON DIOXIDE 27.5 mmol/L (21-32); CHLORIDE 106 mmol/L (98-107); COR CA(FOR HYPOALB) 9.7 mg/dL (8.5-10.1); COR NA(FOR HYPERGLY) 142 mmol/L (136-145); SODIUM 141 mmol/L (136-145); TOTAL PROTEIN 4.9 g/dL (6.4-8.2); eGFR NON BLACK RACES > 60 (>60)
[2019-10-20] MEDS ORDERED: DEMEROL INJ IVP PRN (19:00)
[2019-10-20] MEDS: K-RIDER 10 MEQ/NS 100 ML 10 MEQ/100 ML BAG IV PRN ×4 (19:50→22:50)
--- NOTE | 2019-10-20 20:04 | RAD ---
CHEST, 1 VIEWHISTORY: CENTRAL LINE PLACEMENTStudy: Single view of the chest.Comparison: 10/20/2019Findings:The cardiomediastinal silhouette is normal. No focal consolidations, pleural effusions or pneumothorax. There appears to be a new NG tube terminating in the midesophagus a right central catheter terminates over the expected area of the distal SVC.IMPRESSION:1. New NG tube terminating in the mid esophagus. Recommend advancement.2. A right central catheter terminating over the expected area of the distal SVC.Electronically signed by: SHONDA WHIPPLE (Oct 20, 2019 20:02:06)
[2019-10-20] MEDS: LIPITOR TAB 40 MG PO SCH (21:00)
--- NOTE | 2019-10-20 21:46 | RAD ---
KUBHISTORY: NG TUBE PLACEMENTStudy: Flat view views of the abdomenComparison:NoneFindings:There is a normal bowel gas pattern.No free air..NG tube coiled within the stomach. No acute bony abnormalities. Redemonstration of pneumoperitoneum.IMPRESSION:1. NG tube coiled within the stomach.Electronically signed by: SHONDA WHIPPLE (Oct 20, 2019 21:44:03)
[2019-10-21] MEDS: NS 1000 ML 1,000 ML IV SCH (01:40)
[2019-10-21] MEDS: FLAGYL IV PREMIX 500 MG BAG 500 MG/100 ML BAG IV SCH ×3 (02:41→17:36)
[2019-10-21 05:18] LABS: BASOPHILS # (AUTO) 0.1 X10^3/uL (0.0-0.1); EOSINOPHILS # (AUTO) 0.2 x10^3/uL (0.0-0.2); HEMATOCRIT 23.9 % (36.0-47.0)
[2019-10-21 05:25] LABS: BASOPHILS % (AUTO) 0.5 % (0.2-1.0); EOSINOPHILS % (AUTO) 1.6 % (0.9-2.9); LYMPHOCYTES # (AUTO) 1.1 X10^3/uL (1.3-2.9); LYMPHOCYTES % (AUTO) 7.9 % (21.0-51.0); MEAN CORPUSCULAR HEMOGLOBIN 30.2 pg (27.0-34.0); MEAN CORPUSCULAR HGB CONC 33.5 g/dL (33.0-35.0); MEAN CORPUSCULAR VOLUME 90.3 fL (80.0-100.0); MEAN PLATELET VOLUME 11.3 fL (7.4-11.0); MONOCYTES # (AUTO) 1.1 x10^3/uL (0.3-0.8); MONOCYTES % (AUTO) 7.3 % (0.0-13.0); NEUTROPHILS % (AUTO) 82.7 % (42.0-75.0); PLATELET COUNT 189 X10^3/uL (150.0-450.0); RED BLOOD COUNT 2.65 X10^6/uL (3.5-5.4); RED CELL DISTRIBUTION WIDTH 14.3 % (11.6-16.5); WHITE BLOOD COUNT 14.5 X10^3/uL (3.6-10.0)
[2019-10-21 05:45] LABS: ALANINE AMINOTRANSFERASE 33 Units/L (12-78); ALBUMIN 1.6 g/dL (3.4-5.0); ALKALINE PHOSPHATASE 165 Units/L (46-116); ASPARTATE AMINO TRANSFERASE 32 Units/L (15-37); BLOOD UREA NITROGEN 23 mg/dL (7-18); CALCIUM 7.8 mg/dL (8.5-10.1); CARBON DIOXIDE 25.5 mmol/L (21-32); CHLORIDE 108 mmol/L (98-107); COR CA(FOR HYPOALB) 9.7 mg/dL (8.5-10.1); CREATININE 0.81 mg/dL (0.55-1.02); SODIUM 143 mmol/L (136-145); TOTAL PROTEIN 4.7 g/dL (6.4-8.2); eGFR NON BLACK RACES > 60 (>60)
[2019-10-21] MEDS ORDERED: CHLORASEPTIC SPRAY MT PRN (06:14)
[2019-10-21] MEDS: ZOFRAN INJ 4 MG VIAL IVP PRN ×2 (07:20→16:25)
[2019-10-21] MEDS ORDERED: NS 500 ML IV 500 ML IV ONE (08:49)
--- NOTE | 2019-10-21 09:22 | DR.PROGNOT ---
Hospital Progress Notes - Progress Note for Day of: Progress Note Date: 10/21/19 - Chief Complaint Chief Complaint: still having bloody drainage via NGT . had several episodes of coffee ground emesis last night and melanotic stool. no abdominal pain . Hgb is 8.0. WBC 14.5. lytes normal . BUN/Creat 23/0.8 . temp 98.2. KUB still showing free air and pneumoretroperitonium . - Past Medical Family Social History Past Med/Fam/Surg Hx: No changes since H&P Allergies: Allergies No Known Drug Allergies Allergy (Verified 10/18/19 14:44) - Review Of Systems ROS: No change since H&P - Vital Signs Vital Signs: Temperature 98.2 F Pulse Rate [Left Brachial] 85 Pulse Rate 106 Respiratory Rate 28 Blood Pressure [Left Arm] 121/59 Blood Pressure 147/66 O2 Sat by Pulse Oximetry 95 - Physical Exam Oriented: Normal Eyes: Other (pale conjunctiva ) Ear: Normal Nose: Normal Throat: Normal Cardiovascular: Normal : Normal GI:Auscultation: Normal GI:Palpation: Normal GI: Tenderness: Diffuse (mild diffuse abdominal tenderness , no rebound or rigidity , BS +), RLQ, LUQ Skin: Decreased Turgur Musculoskeletal: Right, Leg, Back:Thoracic, Back:Lumbar Psychiatric: Anxiety Affect: Anxious Speech Pattern: Clear, Appropriate - Laboratory and Diagnostics Result Diagrams: 10/21/19 04:19 10/21/19 04:19 Labs: 10/19/19 01:40 Urine,Catheterized Urine Culture - Preliminary Escherichia Coli Laboratory WBC 14.5 X10^3/uL (3.6-10.0) H 10/21/19 04:19 RBC 2.65 X10^6/uL (3.5-5.4) L 10/21/19 04:19 Hgb 8.0 g/dL (12.0-16.0) L 10/21/19 04:19 Hct 23.9 % (36.0-47.0) L 10/21/19 04:19 MCV 90.3 fL (80.0-100.0) 10/21/19 04:19 MCH 30.2 pg (27.0-34.0) 10/21/19 04:19 MCHC 33.5 g/dL (33.0-35.0) 10/21/19 04:19 RDW 14.3 % (11.6-16.5) 10/21/19 04:19 Plt Count 189 X10^3/uL (150.0-450.0) 10/21/19 04:19 Plt Count Comment Adequate (ADEQUATE) 10/18/19 16:40 MPV 11.3 fL (7.4-11.0) H 10/21/19 04:19 Neut % (Auto) 82.7 % (42.0-75.0) H 10/21/19 04:19 Lymph % (Auto) 7.9 % (21.0-51.0) L 10/21/19 04:19 [place] % (Auto) 7.3 % (0.0-13.0) 10/21/19 04:19 Eos % (Auto) 1.6 % (0.9-2.9) 10/21/19 04:19 Baso % (Auto) 0.5 % (0.2-1.0) 10/21/19 04:19 Neut # (Auto) 12.0 x10^3/uL (2.2-4.8) H 10/21/19 04:19 Lymph # (Auto) 1.1 X10^3/uL (1.3-2.9) L 10/21/19 04:19 [place] # (Auto) 1.1 x10^3/uL (0.3-0.8) H 10/21/19 04:19 Eos # (Auto) 0.2 x10^3/uL (0.0-0.2) 10/21/19 04:19 Baso # (Auto) 0.1 X10^3/uL (0.0-0.1) 10/21/19 04:19 Absolute Nucleated RBC 0.0 /100WBC 10/21/19 04:19 Total Counted 100 10/18/19 16:40 Neutrophils % (Manual) 82 % (39-76) H 10/18/19 16:40 Band Neutrophils % 2 % (0-10) 10/18/19 16:40 Lymphocytes % (Manual) 6 % (13-43) L 10/18/19 16:40 Monocytes % (Manual) 8 % (4-9) 10/18/19 16:40 Eosinophils % (Manual) 2 % (0-6) 10/18/19 16:40 Plt Morphology Comment Normal (NORMAL) 10/18/19 16:40 RBC Morphology Normal (NORMAL) 10/18/19 16:40 PT 15.3 SECONDS (11.8-14.3) 10/19/19 05:53 INR Target Range - 10/19/19 05:53 INR 1.26 (0.8-1.3) 10/19/19 05:53 APTT 24.5 SECONDS (22.9-36.5) 10/19/19 05:53 PTT Comment - 10/19/19 05:53 Sample Site Lr 10/19/19 00:05 ABG pH 7.410 (7.35-7.45) 10/19/19 00:05 ABG pCO2 40.0 mmHg (35.0-45.0) 10/19/19 00:05 ABG pO2 72.0 mmHg (80.0-100.0) L 10/19/19 00:05 ABG HCO3 25.4 mmol/L (22-26) 10/19/19 00:05 ABG O2 Saturation 94.0 % (90-100) 10/19/19 00:05 ABG Base Excess 0.7 mmol/L (-2.0-2.0) 10/19/19 00:05 Rogerio Test P 10/19/19 00:05 A-a Gradient 28.0 mmHg 10/19/19 00:05 FiO2 21.0 10/19/19 00:05 Blood Gas Comments Haim well 10/19/19 00:05 Sodium 143 mmol/L (136-145) 10/21/19 04:19 Corrected Sodium TNP 10/21/19 04:19 Potassium 3.6 mmol/L (3.5-5.1) 10/21/19 04:19 Chloride 108 mmol/L (98-107) H 10/21/19 04:19 Carbon Dioxide 25.5 mmol/L (21-32) 10/21/19 04:19 BUN 23 mg/dL (7-18) H 10/21/19 04:19 Creatinine 0.81 mg/dL (0.55-1.02) 10/21/19 04:19 Est GFR (MDRD) Af Amer > 60 (>60) 10/21/19 04:19 Est GFR (MDRD) Non-Af > 60 (>60) 10/21/19 04:19 Glucose 109 mg/dL (65-99) H 10/21/19 04:19 Lactic Acid 0.8 mmol/L (0.4-2.0) 10/19/19 00:15 Calcium 7.8 mg/dL (8.5-10.1) L 10/21/19 04:19 Corrected Calcium 9.7 mg/dL (8.5-10.1) 10/21/19 04:19 Magnesium 2.0 mg/dL (1.7-2.9) 10/21/19 04:19 Total Bilirubin 0.50 mg/dL (0.2-1.0) 10/21/19 04:19 AST 32 Units/L (15-37) 10/21/19 04:19 ALT 33 Units/L (12-78) 10/21/19 04:19 Alkaline Phosphatase 165 Units/L (46-116) H 10/21/19 04:19 Total Protein 4.7 g/dL (6.4-8.2) L 10/21/19 04:19 Albumin 1.6 g/dL (3.4-5.0) L 10/21/19 04:19 Globulin 3.1 g/dL (2.5-4.5) 10/21/19 04:19 Albumin/Globulin Ratio 0.5 Ratio (1.1-2.1) L 10/21/19 04:19 Specimen Type Catherized urine 10/19/19 01:40 Urine Color Dark yellow (YELLOW) 10/19/19 01:40 Urine Appearance Slightly hazy (CLEAR) 10/19/19 01:40 Urine pH 6.0 (5.0 - 8.0) 10/19/19 01:40 Ur Specific [place] 1.010 (1.000-1.030) 10/19/19 01:40 Urine Protein 2+ (NEGATIVE) 10/19/19 01:40 Urine Glucose (UA) Negative (NEGATIVE) 10/19/19 01:40 Urine Ketones Negative (NEGATIVE) 10/19/19 01:40 Urine Occult Blood 1+ (NEGATIVE) 10/19/19 01:40 Urine Nitrite Positive (NEGATIVE) 10/19/19 01:40 Urine Bilirubin Negative (NEGATIVE) 10/19/19 01:40 Urine Urobilinogen Normal (NORMAL) 10/19/19 01:40 Ur Leukocyte Esterase 1+ (NEGATIVE) 10/19/19 01:40 Urine RBC 0-2 /HPF (0-3) 10/19/19 01:40 Urine WBC 3-5 /HPF (0-5) 10/19/19 01:40 Ur Squamous Epith Cells Rare /HPF (NEGATIVE) 10/19/19 01:40 Urine Bacteria 1+ /HPF (NEGATIVE) 10/19/19 01:40 Ur Culture Indicated? Yes/culture set up 10/19/19 01:40 Gastric Fluid pH 3.0 10/20/19 05:30 Gastric Occult Blood Positive (NEGATIVE) A 10/20/19 05:30 Stool Description 20 g black/liquid 10/21/19 04:50 Stl Occult Blood (IFOB) Negative (NEGATIVE) 10/21/19 04:50 - Assessment and Plan 1: mutiple bleeding gastric ulcers with possible sealed perforation. anemia 2ed to bleeding DU . large pneumoretroperitoneum and pneumomediastinum . severe radiculopathy Rt leg with pelvic Fxs. will tyransfer Pt to tertiary care facility . - Problem Patient Problems: Patient Problems Acute diverticulitis (Acute) K57.92 Pelvic fracture (Acute) S32.9XXA Degenerative joint disease (DJD) of lumbar spine (Acute) M47.816 Hypertension (Acute) I10
[2019-10-21] MEDS: PROTONIX INJ 40 MG VIAL IVP SCH (09:49)
[2019-10-21] MEDS: NORVASC TAB 5 MG PO SCH (09:50)
[2019-10-21] MEDS: TOPROL XL PO SCH (09:50)
[2019-10-21] MEDS ORDERED: TRANEXAMIC ACID 1,000 MG in NS 100 ML IV 100 ML IV SCH (10:00)
[2019-10-21] MEDS ORDERED: TRANEXAMIC ACID 1,000 MG in NS 1000 ML 1,000 ML IV SCH (10:15)
[2019-10-21] MEDS ORDERED: PHENERGAN INJ 25 MG IM PRN (12:09)
[2019-10-21] MEDS ORDERED: PHENERGAN INJ 25 MG IM ONE (12:12)
[2019-10-21 15:10] VITALS: BP 154/69
[2019-10-21] MEDS: MORPHINE SULFATE INJ 2 MG INJ IVP PRN (16:25)
[2019-10-21] MEDS: ZOSYN VIAL 3.375 GRAMS 3.375 G in NS 100 ML IV + SPIKE MINIBAG* 100 ML IV SCH (17:33)
[2019-10-21] MEDS: SYNTHROID 100 mcg TAB PO SCH (17:34)
== END 2019-10-21 16:45 | disposition short-term general hospital (02) | DRG 378 ==
LOC: ER 14:39 → ICU 10-19 00:49
PROVIDERS: ADMIT Internal Medicine; ATTEND Internal Medicine
DX: E03.8 Other specified hypothyroidism; R10.84 Generalized abdominal pain; K26.6 Chronic or unspecified duodenal ulcer with both hemorrhage and perforation; K20.9 Esophagitis, unspecified; D62 Acute posthemorrhagic anemia; R11.2 Nausea with vomiting, unspecified; M51.16 Intervertebral disc disorders with radiculopathy, lumbar region; M79.604 Pain in right leg; E78.2 Mixed hyperlipidemia; K22.2 Esophageal obstruction; I10 Essential (primary) hypertension; M54.5 Low back pain; B96.29 Other Escherichia coli [E. coli] as the cause of diseases classified elsewhere; M25.551 Pain in right hip; N39.0 Urinary tract infection, site not specified; K57.21 Diverticulitis of large intestine with perforation and abscess with bleeding; J93.83 Other pneumothorax; R26.2 Difficulty in walking, not elsewhere classified; S32.9XXD Fracture of unspecified parts of lumbosacral spine and pelvis, subsequent encounter for fracture with routine healing
CPT/HCPCS: 36415; 36430; 36556; 36600; 51702; 71010; 71045; 71260; 72131; 74000; 74018; 74177; 80053; 81001; 82270; 82271; 82803; 83605; 83735; 85014; 85018; 85025; 85610; 85730; 86850; 86900; 86901; 86922; 87040; 87086; 87088; 87186; 93005; 96365; 96372; 96374; 96375; 99100; 99285; A4222; C9113; P9016; S0030; J0360; J1650; J1885; J2175; J2270; J2360; J2405; J2543; J2550; J2704; J3475; J3480; J3490; J7030; J7040; J7050

== ENCOUNTER 2020-09-17 21:09 | Observation (INO) ==
[2020-09-17 21:21] VITALS: BMI 23.3
--- NOTE | 2020-09-17 21:33 | DR.EXTPAIN ---
HPI Time seen Time Seen by Provider: 09/17/20 21:21 PCP Primary Care Physician: JORDY BECKMAN Complaint/Symptoms Chief Complaint Doctor Comments: Patient apparently scheduled for back surgery sep 27. and family unable to take care of her at home. Chief Complaint:: PT IN ED VIA WHEELCHAIR WITH SEVERE WEAKNESS, PAIN IN LEFT LEG AND SIDE, UNABLE TO STAND. FAMILY STATES SHE IS TO HAVE BACK SURGERY 09/27 AND JUST CAN'T CARE FOR HER IN THE CONDITION SHE IS IN NOW. COVID-19 Coronavirus risk:travel/contact w/high risk person: No Has patient experienced Coronavirus symptoms: No Nurses notes reviewed Nurses Notes Review: Yes Source History Provided: Patient and Family Member Mode of arrival Mode of Arrival: Wheelchair Timing Onset of Chief Complaint: 09/12/20 Context History of: Arthritis Associated signs and symptoms Associated Signs and Symptoms: Pain (lower back) PMH PMH Past Medical History: Yes Past Medical History: Dyslipidemia, Hypertension and Hypothyroidism Past Medical History Comment: DIVERTICULITIS, AAA Past Surgical History: Yes Surgical History: Bowel Resection, Carotid Endarterectomy, Hysterectomy, Mastectomy and Other Past Surgical History Comment: RIGHT MASTECTOMY Family History History of Family Medical Conditions: Yes Family Medical History: Diabetes Mellitus, Cancer, MS, Coronary Artery Disease and Hypertension Social History Alcohol Use: None Do you use any recreational Drugs:: No Lives With: Spouse Lives Where: Home Travel Risk Coronavirus risk:travel/contact w/high risk person: No Has patient experienced Coronavirus symptoms: No Infectious screening In the last 2 months have you had wt loss of >10#?: NO Have you had fever, night sweats or hemotysis?: No Have you traveled outside the country in the last 6 months?: No Isolation: Standard ROS Review of Systems Constitutional: Weakness Eyes: No Symptoms Reported ENTM: No Symptoms Reported Respiratoy: No Symptoms Reported Cardiovascular: No Symptoms Reported Gastrointestinal/Abdominal: No Symptoms Reported Genitourinary: No Symptoms Reported Neurological: Weakness Musculoskeletal: Back Pain Integumentary: No Symptoms Reported Hematologic/Lymphatic: No Symptoms Reported Endocrine: No Symptoms Reported Psychiatric: No Symptoms Reported All Other Systems: Reviewed and Negative PE Vital Signs Vitals: Temperature 98.2 F Pulse Rate 82 Respiratory Rate 20 Blood Pressure [Left Arm] 121/59 Blood Pressure 150/67 O2 Sat by Pulse Oximetry 98 General Limitations: No Limitations General Appearance: Alert and In No Apparent Distress Head Head Exam: Normal Inspection, Atraumatic and Normocephalic Eyes Eye exam: Normal Appearance and EOMI ENT ENT Exam: Normal Exam and Normal Oropharynx Neck Neck Exam: Normal Inspection, Full ROM and Trachea Midline Chest Chest Inspection: Normal Inspection Respiratory Respiratory Exam: Normal Lung Sounds Bilat Respiratory Exam: Bilateral: Clear to Auscultation Cardiovascular Cardiovascular Exam: Regular Rate Abdominal Exam Abdominal Exam: Normal Inspection, Normal Bowel Sounds and Soft; negative Distention, Tenderness and Guarding Extremities Extremities Exam: Normal Inspection and Full ROM Upper Extremities Shoulder Exam: Normal Inspection Arm Exam: Normal Inspection Elbow Exam: Normal Inspection Forearm Exam: Normal Inspection Hand Exam: Normal Inspection Lower Extremities Hip/Pelvis Exam: Normal Inspection Upper Leg Exam: Normal Inspection Knee Exam: Normal Inspection Lower Leg Exam: Normal Inspection Ankle Exam: Normal Inspection Foot/Toe Exam: Normal Inspection Neurovascular/Tendon Exam: Normal Capillary Refill Back Back Exam: Normal Inspection Neurological Neurological Exam: Alert, Oriented X3 and CN II-XII Intact; negative Normal Gait (too weak to walk) Psychiatric Psychiatric Exam: Flat Affect Skin Skin Exam: Normal Color COURSE Treatment Treatment: Records from [facility] obtained: lumbar ct-multilevel spine DJD, saccular aneuryem2.5cm aorta: CT Head:no acute findings Consultation Called: 22:32 Call Returned: 22:32 Consultation Comments: case discussed with Dr. Junior rogers pain control senior living care evaluation ROR Labs Reviewed Result Diagrams: 09/17/20 21:39 09/17/20 21:39 Laboratory: WBC 6.2 X10^3/uL (3.6-10.0) 09/17/20 21:39 RBC 3.65 X10^6/uL (3.5-5.4) 09/17/20 21:39 Hgb 11.2 g/dL (12.0-16.0) L 09/17/20 21:39 Hct 33.7 % (36.0-47.0) L 09/17/20 21:39 MCV 92.4 fL (80.0-100.0) 09/17/20 21:39 MCH 30.7 pg (27.0-34.0) 09/17/20 21:39 MCHC 33.3 g/dL (33.0-35.0) 09/17/20 21:39 RDW 15.7 % (11.6-16.5) 09/17/20 21:39 Plt Count 280 X10^3/uL (150.0-450.0) 09/17/20 21:39 MPV 9.5 fL (7.4-11.0) 09/17/20 21:39 Neut % (Auto) 70.6 % (42.0-75.0) 09/17/20 21:39 Lymph % (Auto) 14.9 % (21.0-51.0) L 09/17/20 21:39 [place] % (Auto) 9.6 % (0.0-13.0) 09/17/20 21:39 Eos % (Auto) 4.0 % (0.9-2.9) H 09/17/20 21:39 Baso % (Auto) 0.9 % (0.2-1.0) 09/17/20 21:39 Neut # (Auto) 4.4 x10^3/uL (2.2-4.8) 09/17/20 21:39 Lymph # (Auto) 0.9 X10^3/uL (1.3-2.9) L 09/17/20 21:39 [place] # (Auto) 0.6 x10^3/uL (0.3-0.8) 09/17/20 21:39 Eos # (Auto) 0.2 x10^3/uL (0.0-0.2) 09/17/20 21:39 Baso # (Auto) 0.1 X10^3/uL (0.0-0.1) 09/17/20 21:39 Absolute Nucleated RBC 0.0 /100WBC 09/17/20 21:39 Sodium 141 mmol/L (136-145) 09/17/20 21:39 Corrected Sodium 142 mmol/L (136-145) 09/17/20 21:39 Potassium 3.8 mmol/L (3.5-5.1) 09/17/20 21:39 Chloride 103 mmol/L (98-107) 09/17/20 21:39 Carbon Dioxide 34.1 mmol/L (21-32) H 09/17/20 21:39 BUN 20 mg/dL (7-18) H 09/17/20 21:39 Creatinine 0.80 mg/dL (0.55-1.02) 09/17/20 21:39 Est GFR (MDRD) Af Amer > 60 (>60) 09/17/20 21:39 Est GFR (MDRD) Non-Af > 60 (>60) 09/17/20 21:39 Glucose 140 mg/dL (65-99) H 09/17/20 21:39 Calcium 9.4 mg/dL (8.5-10.1) 09/17/20 21:39 Corrected Calcium 10.5 mg/dL (8.5-10.1) H 09/17/20 21:39 Total Bilirubin 0.50 mg/dL (0.2-1.0) 09/17/20 21:39 AST 40 Units/L (15-37) H 09/17/20 21:39 ALT 50 Units/L (12-78) 09/17/20 21:39 Alkaline Phosphatase 181 Units/L (46-116) H 09/17/20 21:39 Total Protein 6.7 g/dL (6.4-8.2) 09/17/20 21:39 Albumin 2.6 g/dL (3.4-5.0) L 09/17/20 21:39 Globulin 4.1 g/dL (2.5-4.5) 09/17/20 21:39 Albumin/Globulin Ratio 0.6 Ratio (1.1-2.1) L 09/17/20 21:39 Lipase 409 Units/L (73-393) H 09/17/20 21:39 SARS CoV-2 RNA Rapid HUNTER Negative (NEGATIVE) 09/17/20 21:44 XRAY XRAY Interpreted by: Radiologist and Self X-ray Results: AAS: no free air, severe scoliosis lumbar spine Opioid Opioid Risk Tool Age (Rodríguez box if 16-45): No History of Preadolescent Sexual Abuse: No Total: 0 Total Score Risk Category: Low Risk Copyright: Jack MURRAY predicting aberrant behaviors Diagnosis Discharge Problem: Weakness Scoliosis of lumbar spine Qualifiers: Scoliosis type: idiopathic Idiopathic scoliosis type: adolescent Qualified Code(s): M41.126 - Adolescent idiopathic scoliosis, lumbar region Instructions Forms: Precautions for COVID19 Patient Portal Social Distancing
[2020-09-17] MEDS ORDERED: NS 1000 ML 1,000 ML ONE (21:41)
[2020-09-17 21:54] LABS: BASOPHILS # (AUTO) 0.1 X10^3/uL (0.0-0.1); BASOPHILS % (AUTO) 0.9 % (0.2-1.0); EOSINOPHILS # (AUTO) 0.2 x10^3/uL (0.0-0.2); HEMATOCRIT 33.7 % (36.0-47.0); HEMOGLOBIN 11.2 g/dL (12.0-16.0); LYMPHOCYTES # (AUTO) 0.9 X10^3/uL (1.3-2.9); LYMPHOCYTES % (AUTO) 14.9 % (21.0-51.0); MEAN CORPUSCULAR HEMOGLOBIN 30.7 pg (27.0-34.0); MEAN CORPUSCULAR HGB CONC 33.3 g/dL (33.0-35.0); MEAN CORPUSCULAR VOLUME 92.4 fL (80.0-100.0); MEAN PLATELET VOLUME 9.5 fL (7.4-11.0); MONOCYTES # (AUTO) 0.6 x10^3/uL (0.3-0.8); MONOCYTES % (AUTO) 9.6 % (0.0-13.0); NEUTROPHILS # (AUTO) 4.4 x10^3/uL (2.2-4.8); NEUTROPHILS % (AUTO) 70.6 % (42.0-75.0); PLATELET COUNT 280 X10^3/uL (150.0-450.0); RED BLOOD COUNT 3.65 X10^6/uL (3.5-5.4); RED CELL DISTRIBUTION WIDTH 15.7 % (11.6-16.5); WHITE BLOOD COUNT 6.2 X10^3/uL (3.6-10.0)
[2020-09-17] MEDS ORDERED: NS 1000 ML 1,000 ML IV SCH (22:00)
[2020-09-17 22:03] LABS: ALANINE AMINOTRANSFERASE 50 Units/L (12-78); ALBUMIN 2.6 g/dL (3.4-5.0); ALKALINE PHOSPHATASE 181 Units/L (46-116); ASPARTATE AMINO TRANSFERASE 40 Units/L (15-37); BLOOD UREA NITROGEN 20 mg/dL (7-18); CALCIUM 9.4 mg/dL (8.5-10.1); CARBON DIOXIDE 34.1 mmol/L (21-32); CHLORIDE 103 mmol/L (98-107); COR CA(FOR HYPOALB) 10.5 mg/dL (8.5-10.1); COR NA(FOR HYPERGLY) 142 mmol/L (136-145); LIPASE 409 Units/L (73-393); SODIUM 141 mmol/L (136-145); TOTAL PROTEIN 6.7 g/dL (6.4-8.2); eGFR NON BLACK RACES > 60 (>60)
[2020-09-17] MEDS ORDERED: ULTRAM PO PRN (22:52)
[2020-09-17] MEDS ORDERED: OFIRMEV IV 1000 MG VIAL 750 MG/75 ML VIAL IV PRN (22:53)
--- NOTE | 2020-09-17 22:53 | RAD ---
EXAM: ABDOMEN X-RAY SERIES WITH CXRHISTORY: Abdominal pain. Lower back pain.TECHNIQUE: Supine and erect views of the abdomen; frontal single view CXRCOMPARISON: None.FINDINGS:ABDOMEN: There are air-filled distended small bowel loops and up to 6.7 cm air-filled distended large bowel loops and rectum suspicious for mild ileus. An average amount of fecal material is seen within the large bowel loops and rectum. The bowel gas pattern is otherwise nonspecific and nonobstructive. There is no gross organomegaly, free intraperitoneal air, or suspicious calcifications seen. Severe multilevel DDD is seen throughout the lumbar spine with prominent rotatory levoscoliosis. 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 Diffuse osteopenia is noted. The visualized bony structures are otherwise within normal limits.CHEST: The exam is degraded by shallow inspiratory effort and patient rotation. There is suggestion of mild cardiomegaly and mild diffuse prominence of the pulmonary vascularity and interstitial markings which may represent minimal CHF or volume overload in the appropriate clinical setting; DDx includes bronchitis or interstitial pneumonia (rule out Covid pneumonia) in the appropriate clinical setting. There is no focal parenchymal consolidation, pleural effusion, or pneumothorax seen.IMPRESSION:1. Air-Filled distended small bowel loops and up to 6.7 cm air-filled distended large bowel loops and rectum suspicious for mild ileus. An average amount of fecal material is seen within the large bowel loops and rectum.2. No gross organomegaly, free intraperitoneal air, or suspicious calcifications seen.3. Suggestion of mild cardiomegaly and mild diffuse prominence of the pulmonary vascularity and interstitial markings which may represent minimal CHF or volume overload in the appropriate clinical setting; DDx includes bronchitis or interstitial pneumonia (rule out Covid pneumonia) in the appropriate clinical setting.Electronically signed by: Teresa Hwang (Sep 17, 2020 22:51:28)
[2020-09-17 23:00] LABS: BILIRUBIN,URINE NEGATIVE (NEGATIVE); BLOOD/HEMOGLOBIN,URINE 2+ (NEGATIVE); GLUCOSE, URINE NEGATIVE (NEGATIVE); KETONES,URINE 1+ (NEGATIVE); LEUKOCYTE ESTERASE ,URINE 2+ (NEGATIVE); NITRITES,URINE NEGATIVE (NEGATIVE); PROTEIN,URINE 1+ (NEGATIVE); UROBILINOGEN,URINE NORMAL (NORMAL)
[2020-09-17 23:25] LABS: APPEARANCE,URINE CLEAR (CLEAR); BACTERIA,URINE 1+ /HPF (NEGATIVE); COLOR,URINE YELLOW (YELLOW); SQUAMOUS EPITHELIAL CELL,UR NEGATIVE /HPF (NEGATIVE)
[2020-09-18] MEDS: XOPENEX 1.25 MG/3 ML NEBULE NEB SCH ×3 (05:35→21:20)
[2020-09-18] MEDS ORDERED: SOLU-Medrol 40 MG VIAL IVP ONE (08:19)
[2020-09-18] MEDS ORDERED: ULTRAM PO PRN (08:21)
[2020-09-18] MEDS: PULMICORT NEB TX 0.5 MG NEB SCH ×2 (09:10→21:20)
[2020-09-18] MEDS: BUMEX TAB 1 MG PO SCH (09:14)
[2020-09-18] MEDS: ROCEPHIN VIAL 1 GRAM 1 G in NS 100 ML IV + SPIKE MINIBAG* 100 ML IV SCH ×2 (09:14→12:14)
[2020-09-18] MEDS: LOVENOX INJ 40 MG SYR SC SCH (09:15)
[2020-09-18] MEDS: COLACE CAP 100 MG PO SCH (09:15)
[2020-09-18] MEDS: LYRICA CAP 150 mg PO SCH ×2 (09:16→21:00)
[2020-09-18] MEDS: NORVASC TAB 5 MG PO SCH (09:16)
[2020-09-18] MEDS: SYNTHROID 112 mcg TAB PO SCH (09:16)
[2020-09-18] MEDS: TOPROL XL PO SCH (09:16)
[2020-09-18] MEDS ORDERED: LIPITOR TAB 40 MG PO SCH (21:00)
[2020-09-19] MEDS: XOPENEX 1.25 MG/3 ML NEBULE NEB SCH (06:16)
--- NOTE | 2020-09-19 07:57 | DR.H&P ---
H&P History & Physical for Day of: H&P Date: 09/18/20 Chief Complaint Chief Complaint: generalized weakness Allergies Allergies Allergy/AdvReac Type Severity Reaction Status Date / Time No Known Drug Allergies Allergy Verified 10/18/19 14:44 History of Present Illness History of Present Illness: Patient is a 80y/o female with a PMH of AAA, HTN, HLD, hypothyroidism, CHF presented for generalized weakness and unable to ambulate due to back pain. Patient was recently admitted at [facility] for UTI and then had to be transferred to [facility] for further management. It was suspected that patient might have an enlarged AAA but U/S there showed it to be 2 cm and on surgical intervention was needed. Patient is supposed to have minor back procedure on 09/27/[address] Murrell. She was discharged from [facility] and then came to ED here due to generalized weakness and unable to be taken care of at home. ED work-up - Labs: hgb 11.2 - Abd/CXR: Air-Filled distended small bowel loops and up to 6.7 cm air-filled distended large bowel loops and rectum suspicious for mild ileus. An average amount of fecal material is seen within the large bowel loops and rectum. Mild cardiomegaly and mild diffuse prominence of the pulmonary vascularity and interstitial markings. UA: suggestive of infection Plan: start Rocephin, stop IVF, resume home medications. Add duonebs/pulmicort. Give one dose of solumedrol. Wean O2 as tolerated. Remove moreno. PT/OT eval. CM to discuss discharge needs with family. Monitor urine culture and AM labs. Past Medical History Past Medical History: Dyslipidemia, Hypertension and Hypothyroidism Past Surgical History Surgical History: Carotid Endarterectomy, Hysterectomy and Mastectomy Family History Family Medical History: Diabetes Mellitus, Cancer, DC and Hypertension Social History Does patient currently use any type of tobacco product: No Have you used tobacco products in the last 12 months: No Alcohol Use: None Drug Use: None Medications Home Medications: No Known Drug Allergies Allergy (Verified 10/18/19 14:44) CONTINUE taking the following medications bumetanide 1 mg PO DAILY 09/17/20 [History] levothyroxine [Synthroid] 112 mcg PO QAM 09/17/20 [History] metoprolol succinate 25 mg PO DAILY 09/17/20 [History] pregabalin 150 mg PO BID 09/17/20 [History] Labs Result Diagrams: 09/19/20 08:15 09/19/20 08:15 Labs: Laboratory WBC 6.2 X10^3/uL (3.6-10.0) 09/17/20 21:39 RBC 3.65 X10^6/uL (3.5-5.4) 09/17/20 21:39 Hgb 11.2 g/dL (12.0-16.0) L 09/17/20 21:39 Hct 33.7 % (36.0-47.0) L 09/17/20 21:39 MCV 92.4 fL (80.0-100.0) 09/17/20 21:39 MCH 30.7 pg (27.0-34.0) 09/17/20 21:39 MCHC 33.3 g/dL (33.0-35.0) 09/17/20 21:39 RDW 15.7 % (11.6-16.5) 09/17/20 21:39 Plt Count 280 X10^3/uL (150.0-450.0) 09/17/20 21:39 MPV 9.5 fL (7.4-11.0) 09/17/20 21:39 Neut % (Auto) 70.6 % (42.0-75.0) 09/17/20 21:39 Lymph % (Auto) 14.9 % (21.0-51.0) L 09/17/20 21:39 [place] % (Auto) 9.6 % (0.0-13.0) 09/17/20 21:39 Eos % (Auto) 4.0 % (0.9-2.9) H 09/17/20 21:39 Baso % (Auto) 0.9 % (0.2-1.0) 09/17/20 21:39 Neut # (Auto) 4.4 x10^3/uL (2.2-4.8) 09/17/20 21:39 Lymph # (Auto) 0.9 X10^3/uL (1.3-2.9) L 09/17/20 21:39 [place] # (Auto) 0.6 x10^3/uL (0.3-0.8) 09/17/20 21:39 Eos # (Auto) 0.2 x10^3/uL (0.0-0.2) 09/17/20 21:39 Baso # (Auto) 0.1 X10^3/uL (0.0-0.1) 09/17/20 21:39 Absolute Nucleated RBC 0.0 /100WBC 09/17/20 21:39 Sodium 141 mmol/L (136-145) 09/17/20 21:39 Corrected Sodium 142 mmol/L (136-145) 09/17/20 21:39 Potassium 3.8 mmol/L (3.5-5.1) 09/17/20 21:39 Chloride 103 mmol/L (98-107) 09/17/20 21:39 Carbon Dioxide 34.1 mmol/L (21-32) H 09/17/20 21:39 BUN 20 mg/dL (7-18) H 09/17/20 21:39 Creatinine 0.80 mg/dL (0.55-1.02) 09/17/20 21:39 Est GFR (MDRD) Af Amer > 60 (>60) 09/17/20 21:39 Est GFR (MDRD) Non-Af > 60 (>60) 09/17/20 21:39 Glucose 140 mg/dL (65-99) H 09/17/20 21:39 POC Glucose (mg/dL) 114 mg/dL (65-99) H 09/19/20 05:48 Calcium 9.4 mg/dL (8.5-10.1) 09/17/20 21:39 Corrected Calcium 10.5 mg/dL (8.5-10.1) H 09/17/20 21:39 Total Bilirubin 0.50 mg/dL (0.2-1.0) 09/17/20 21:39 AST 40 Units/L (15-37) H 09/17/20 21:39 ALT 50 Units/L (12-78) 09/17/20 21:39 Alkaline Phosphatase 181 Units/L (46-116) H 09/17/20 21:39 Total Protein 6.7 g/dL (6.4-8.2) 09/17/20 21:39 Albumin 2.6 g/dL (3.4-5.0) L 09/17/20 21:39 Globulin 4.1 g/dL (2.5-4.5) 09/17/20 21:39 Albumin/Globulin Ratio 0.6 Ratio (1.1-2.1) L 09/17/20 21:39 Lipase 409 Units/L (73-393) H 09/17/20 21:39 Specimen Type Catherized urine 09/17/20 22:52 Urine Color Yellow (YELLOW) 09/17/20 22:52 Urine Appearance Clear (CLEAR) 09/17/20 22:52 Urine pH 6.0 (5.0 - 8.0) 09/17/20 22:52 Ur Specific [place] 1.015 (1.000-1.030) 09/17/20 22:52 Urine Protein 1+ (NEGATIVE) 09/17/20 22:52 Urine Glucose (UA) Negative (NEGATIVE) 09/17/20 22:52 Urine Ketones 1+ (NEGATIVE) 09/17/20 22:52 Urine Occult Blood 2+ (NEGATIVE) 09/17/20 22:52 Urine Nitrite Negative (NEGATIVE) 09/17/20 22:52 Urine Bilirubin Negative (NEGATIVE) 09/17/20 22:52 Urine Urobilinogen Normal (NORMAL) 09/17/20 22:52 Ur Leukocyte Esterase 2+ (NEGATIVE) 09/17/20 22:52 Urine RBC 5-10 /HPF (0-3) A 09/17/20 22:52 Urine WBC 10-20 /HPF (0-5) A 09/17/20 22:52 Ur Squamous Epith Cells Negative /HPF (NEGATIVE) 09/17/20 22:52 Urine Bacteria 1+ /HPF (NEGATIVE) 09/17/20 22:52 Ur Culture Indicated? Yes/culture set up 09/17/20 22:52 SARS CoV-2 RNA Rapid HUNTER Negative (NEGATIVE) 09/17/20 21:44 Review of Systems Constitutional: Weakness Eyes: No Symptoms Reported ENT: No Symptoms Reported Respiratory: Wheezing Cardiovascular: No Symptoms Reported Gastrointestinal: No Symptoms Reported Genitourinary: No Symptoms Reported Musculoskeletal: Back Pain Skin: No Symptoms Reported Neurological: No Symptoms Reported Physical Exam Vital Signs: Temperature 97.8 F Pulse Rate [Right Radial] 85 Pulse Rate 78 Respiratory Rate 21 Blood Pressure [Left Arm] 108/60 Blood Pressure 150/67 O2 Sat by Pulse Oximetry 95 Oriented: Normal Eyes: Normal Ear: Normal Nose: Normal Throat: Normal Respiratory: Wheezes Throughout, RLL Rales and LLL Rales Cardiovascular: Normal Auscultation: Bowel Sounds: Normal Palpation: Normal Tenderness: Normal Skin: Normal Musculoskeletal: Back:Paraspinous Psychiatric: Normal Mood Description: Calm Affect: Normal Speech Pattern: Clear and Appropriate Assessment/Plan (1) UTI (urinary tract infection): Qualifiers: Urinary tract infection type: site unspecified Hematuria presence: without hematuria Qualified Code(s): N39.0 - Urinary tract infection, site not specified Status: Acute (2) Weakness: Status: Acute (3) COPD exacerbation: Status: Acute (4) Scoliosis of lumbar spine: Qualifiers: Idiopathic scoliosis type: adolescent Scoliosis type: idiopathic Qualified Code(s): M41.126 - Adolescent idiopathic scoliosis, lumbar region Status: Acute (5) Degenerative joint disease (DJD) of lumbar spine: Qualifiers: Spinal osteoarthritis complication: unspecified spinal osteoarthritis Qualified Code(s): M47.816 - Spondylosis without myelopathy or radiculopathy, lumbar region Status: Acute (6) Hypertension: Qualifiers: Hypertension type: essential hypertension Qualified Code(s): I10 - Essential (primary) hypertension Status: Acute Review H&P Reviewed: Yes Patient was examined?: Yes
[2020-09-19 08:38] LABS: BASOPHILS % (AUTO) 0.5 % (0.2-1.0); HEMATOCRIT 32.7 % (36.0-47.0); HEMOGLOBIN 10.8 g/dL (12.0-16.0); LYMPHOCYTES # (AUTO) 0.8 X10^3/uL (1.3-2.9); LYMPHOCYTES % (AUTO) 13.5 % (21.0-51.0); MEAN CORPUSCULAR HEMOGLOBIN 30.5 pg (27.0-34.0); MEAN CORPUSCULAR HGB CONC 33.1 g/dL (33.0-35.0); MEAN CORPUSCULAR VOLUME 92.3 fL (80.0-100.0); MEAN PLATELET VOLUME 9.8 fL (7.4-11.0); MONOCYTES # (AUTO) 0.4 x10^3/uL (0.3-0.8); NEUTROPHILS # (AUTO) 4.9 x10^3/uL (2.2-4.8); PLATELET COUNT 299 X10^3/uL (150.0-450.0); RED BLOOD COUNT 3.55 X10^6/uL (3.5-5.4); RED CELL DISTRIBUTION WIDTH 15.2 % (11.6-16.5); WHITE BLOOD COUNT 6.1 X10^3/uL (3.6-10.0)
[2020-09-19 08:40] LABS: BLOOD UREA NITROGEN 17 mg/dL (7-18); CALCIUM 9.3 mg/dL (8.5-10.1); CARBON DIOXIDE 29.3 mmol/L (21-32); CHLORIDE 102 mmol/L (98-107); COR NA(FOR HYPERGLY) 141 mmol/L (136-145); CREATININE 0.75 mg/dL (0.55-1.02); SODIUM 139 mmol/L (136-145); eGFR NON BLACK RACES > 60 (>60)
[2020-09-19] MEDS ORDERED: PREDNISONE TAB 20 MG PO SCH (09:00)
[2020-09-19] MEDS: COLACE CAP 100 MG PO SCH (09:12)
[2020-09-19] MEDS: LOVENOX INJ 40 MG SYR SC SCH (09:12)
[2020-09-19] MEDS: BUMEX TAB 1 MG PO SCH (09:12)
[2020-09-19] MEDS: LYRICA CAP 150 mg PO SCH (09:13)
[2020-09-19] MEDS: NORVASC TAB 5 MG PO SCH (09:13)
[2020-09-19] MEDS: ROCEPHIN VIAL 1 GRAM 1 G in NS 100 ML IV + SPIKE MINIBAG* 100 ML IV SCH (09:13)
[2020-09-19] MEDS: TOPROL XL PO SCH (09:14)
[2020-09-19] MEDS: SYNTHROID 112 mcg TAB PO SCH (09:14)
[2020-09-19] MEDS ORDERED: K-DUR TAB 20 MEQ PO SCH (10:00)
--- NOTE | 2020-09-19 10:07 | RAD ---
HISTORYWheezing, hypoxiaSTUDYChest AP [id number]/30/2020FINDINGSThe heart is minimally enlarged. No congestive heart failure is noted. The aorta is calcified. The lung carias are clear. No pleural effusions are identified. There is minimal subsegmental atelectasis in the right lung base.IMPRESSIONMinimal cardiomegaly without congestive heart failureNo acute infiltratesElectronically signed by: JESUSITA OLIVAS (Sep 19, 2020 10:06:18)
[2020-09-19] MEDS: PULMICORT NEB TX 0.5 MG NEB SCH (10:10)
[2020-09-19 12:26] VITALS: BP 120/73
--- NOTE | 2020-09-19 13:08 | W.DIS.FURT ---
Summary of Discharge Admission Diagnosis Patient Problems (Updated 09/19/20 @ 11:09 by Joaquina Pacheco) Weakness (Acute) R53.1 Scoliosis of lumbar spine (Acute) M41.9 Hospital Course: History of Present Illness: Patient is a 80y/o female with a PMH of AAA, HTN, HLD, hypothyroidism, CHF presented for generalized weakness and unable to ambulate due to back pain. Patient was recently admitted at [facility] for UTI and then had to be transferred to [facility] for further management. It was suspected that patient might have an enlarged AAA but U/S there showed it to be 2 cm and on surgical intervention was needed. Patient is supposed to have minor back procedure on 09/27/[address] Murrell. She was discharged from [facility] and then came to ED here due to generalized weakness and unable to be taken care of at home. ED work-up - Labs: hgb 11.2 - Abd/CXR: Air-Filled distended small bowel loops and up to 6.7 cm air-filled distended large bowel loops and rectum suspicious for mild ileus. An average amount of fecal material is seen within the large bowel loops and rectum. Mild cardiomegaly and mild diffuse prominence of the pulmonary vascularity and interstitial markings. UA: suggestive of infection Plan: start Rocephin, stop IVF, resume home medications. Add duonebs/pulmicort. Give one dose of solumedrol. Wean O2 as tolerated. Remove moreno. PT/OT eval. CM to discuss discharge needs with family. Monitor urine culture and AM labs. Vital Signs: Vital Signs (72 hours) 09/17/20 21:03 09/17/20 21:11 09/17/20 21:12 Temperature 98.2 F Pulse Rate 92 H 93 H Pulse Rate [Right Radial] Respiratory Rate 20 Blood Pressure 156/72 156/72 Blood Pressure [Left Arm] O2 Sat by Pulse Oximetry 94 L 92 L 09/17/20 21:15 09/17/20 21:30 09/17/20 21:45 Temperature Pulse Rate 95 H 87 89 Pulse Rate [Right Radial] Respiratory Rate Blood Pressure 131/65 Blood Pressure [Left Arm] O2 Sat by Pulse Oximetry 89 L 91 L 91 L 09/17/20 21:59 09/17/20 22:00 09/17/20 22:02 Temperature Pulse Rate 82 79 Pulse Rate [Right Radial] Respiratory Rate Blood Pressure 139/64 Blood Pressure [Left Arm] O2 Sat by Pulse Oximetry 92 L 90 L 09/17/20 22:15 09/17/20 22:30 09/17/20 22:45 Temperature Pulse Rate 82 82 95 H Pulse Rate [Right Radial] Respiratory Rate Blood Pressure 150/67 Blood Pressure [Left Arm] O2 Sat by Pulse Oximetry 99 98 98 09/18/20 00:00 09/18/20 04:00 09/18/20 05:35 Temperature 98.9 F 98.4 F Pulse Rate 95 H Pulse Rate [Right Radial] 86 81 Respiratory Rate 18 20 Blood Pressure Blood Pressure [Left Arm] 152/67 113/62 O2 Sat by Pulse Oximetry 94 L 98 95 09/18/20 08:00 09/18/20 09:10 09/18/20 12:00 Temperature 98.6 F 98.4 F Pulse Rate 86 Pulse Rate [Right Radial] 86 92 H Respiratory Rate 22 18 Blood Pressure Blood Pressure [Left Arm] 103/53 109/55 O2 Sat by Pulse Oximetry 91 L 95 93 L 09/18/20 14:00 09/18/20 15:00 09/18/20 16:00 Temperature 99.2 F Pulse Rate Pulse Rate [Right Radial] 109 H Respiratory Rate 20 18 20 Blood Pressure Blood Pressure [Left Arm] 89/52 O2 Sat by Pulse Oximetry 93 L 09/18/20 20:00 09/18/20 21:20 09/19/20 00:00 Temperature 97.8 F 98.0 F Pulse Rate 75 Pulse Rate [Right Radial] 77 89 Respiratory Rate 20 18 Blood Pressure Blood Pressure [Left Arm] 104/62 91/52 O2 Sat by Pulse Oximetry 97 93 L 95 09/19/20 04:00 09/19/20 06:16 09/19/20 08:00 Temperature 97.8 F 98.2 F Pulse Rate 78 Pulse Rate [Right Radial] 85 91 H Respiratory Rate 21 18 Blood Pressure Blood Pressure [Left Arm] 108/60 95/51 O2 Sat by Pulse Oximetry 91 L 95 97 09/19/20 12:00 Temperature 97.9 F Pulse Rate Pulse Rate [Right Radial] 86 Respiratory Rate 18 Blood Pressure Blood Pressure [Left Arm] 120/73 O2 Sat by Pulse Oximetry 98 Labs: Laboratory Last Values WBC 6.1 X10^3/uL (3.6-10.0) 09/19/20 08:15 RBC 3.55 X10^6/uL (3.5-5.4) 09/19/20 08:15 Hgb 10.8 g/dL (12.0-16.0) L 09/19/20 08:15 Hct 32.7 % (36.0-47.0) L 09/19/20 08:15 MCV 92.3 fL (80.0-100.0) 09/19/20 08:15 MCH 30.5 pg (27.0-34.0) 09/19/20 08:15 MCHC 33.1 g/dL (33.0-35.0) 09/19/20 08:15 RDW 15.2 % (11.6-16.5) 09/19/20 08:15 Plt Count 299 X10^3/uL (150.0-450.0) 09/19/20 08:15 MPV 9.8 fL (7.4-11.0) 09/19/20 08:15 Neut % (Auto) 80.0 % (42.0-75.0) H 09/19/20 08:15 Lymph % (Auto) 13.5 % (21.0-51.0) L 09/19/20 08:15 Trigg % (Auto) 6.0 % (0.0-13.0) 09/19/20 08:15 Eos % (Auto) 0.0 % (0.9-2.9) L 09/19/20 08:15 Baso % (Auto) 0.5 % (0.2-1.0) 09/19/20 08:15 Neut # (Auto) 4.9 x10^3/uL (2.2-4.8) H 09/19/20 08:15 Lymph # (Auto) 0.8 X10^3/uL (1.3-2.9) L 09/19/20 08:15 Trigg # (Auto) 0.4 x10^3/uL (0.3-0.8) 09/19/20 08:15 Eos # (Auto) 0.0 x10^3/uL (0.0-0.2) 09/19/20 08:15 Baso # (Auto) 0.0 X10^3/uL (0.0-0.1) 09/19/20 08:15 Absolute Nucleated RBC 0.0 /100WBC 09/19/20 08:15 Sodium 139 mmol/L (136-145) 09/19/20 08:15 Corrected Sodium 141 mmol/L (136-145) 09/19/20 08:15 Potassium 3.2 mmol/L (3.5-5.1) L 09/19/20 08:15 Chloride 102 mmol/L (98-107) 09/19/20 08:15 Carbon Dioxide 29.3 mmol/L (21-32) 09/19/20 08:15 BUN 17 mg/dL (7-18) 09/19/20 08:15 Creatinine 0.75 mg/dL (0.55-1.02) 09/19/20 08:15 Est GFR (MDRD) Af Amer > 60 (>60) 09/19/20 08:15 Est GFR (MDRD) Non-Af > 60 (>60) 09/19/20 08:15 Glucose 167 mg/dL (65-99) H 09/19/20 08:15 POC Glucose (mg/dL) 118 mg/dL (65-99) H 09/19/20 12:20 Calcium 9.3 mg/dL (8.5-10.1) 09/19/20 08:15 Corrected Calcium 10.5 mg/dL (8.5-10.1) H 09/17/20 21:39 Total Bilirubin 0.50 mg/dL (0.2-1.0) 09/17/20 21:39 AST 40 Units/L (15-37) H 09/17/20 21:39 ALT 50 Units/L (12-78) 09/17/20 21:39 Alkaline Phosphatase 181 Units/L (46-116) H 09/17/20 21:39 Total Protein 6.7 g/dL (6.4-8.2) 09/17/20 21:39 Albumin 2.6 g/dL (3.4-5.0) L 09/17/20 21:39 Globulin 4.1 g/dL (2.5-4.5) 09/17/20 21:39 Albumin/Globulin Ratio 0.6 Ratio (1.1-2.1) L 09/17/20 21:39 Lipase 409 Units/L (73-393) H 09/17/20 21:39 Specimen Type Catherized urine 09/17/20 22:52 Urine Color Yellow (YELLOW) 09/17/20 22:52 Urine Appearance Clear (CLEAR) 09/17/20 22:52 Urine pH 6.0 (5.0 - 8.0) 09/17/20 22:52 Ur Specific [place] 1.015 (1.000-1.030) 09/17/20 22:52 Urine Protein 1+ (NEGATIVE) 09/17/20 22:52 Urine Glucose (UA) Negative (NEGATIVE) 09/17/20 22:52 Urine Ketones 1+ (NEGATIVE) 09/17/20 22:52 Urine Occult Blood 2+ (NEGATIVE) 09/17/20 22:52 Urine Nitrite Negative (NEGATIVE) 09/17/20 22:52 Urine Bilirubin Negative (NEGATIVE) 09/17/20 22:52 Urine Urobilinogen Normal (NORMAL) 09/17/20 22:52 Ur Leukocyte Esterase 2+ (NEGATIVE) 09/17/20 22:52 Urine RBC 5-10 /HPF (0-3) A 09/17/20 22:52 Urine WBC 10-20 /HPF (0-5) A 09/17/20 22:52 Ur Squamous Epith Cells Negative /HPF (NEGATIVE) 09/17/20 22:52 Urine Bacteria 1+ /HPF (NEGATIVE) 09/17/20 22:52 Ur Culture Indicated? Yes/culture set up 09/17/20 22:52 SARS CoV-2 RNA Rapid HUNTER Negative (NEGATIVE) 09/17/20 21:44 Reason For Visit: BACK PAIN,WEAKNESS Discharge Diagnosis All Active Problems (Updated 09/19/20 @ 11:09 by Joaquina Pacheco) COPD exacerbation (Acute) UTI (urinary tract infection) (Acute) Acute diverticulitis (Acute) Pelvic fracture (Acute) Degenerative joint disease (DJD) of lumbar spine (Acute) Hypertension (Acute) Perforated diverticulum (Acute) Diverticulitis (Acute) Sacral fracture (Acute) Pneumopericardium (Acute) Pneumothorax (Acute) Weakness (Acute) Scoliosis of lumbar spine (Acute) Plan of Treatment: Continue with present treatment and follow up plan. Pt is to keep follow up appointment as instructed and take medications as ordered. Discharge Medications Discharge Medications: No Known Drug Allergies Allergy (Verified 10/18/19 14:44) CONTINUE taking the following medications bumetanide 1 mg PO DAILY 09/17/20 [History] levothyroxine [Synthroid] 112 mcg PO QAM 09/17/20 [History] metoprolol succinate 25 mg PO DAILY 09/17/20 [History] pregabalin 150 mg PO BID 09/17/20 [History] New Prescriptions albuterol sulfate 2 puff INHALATION Q4-6H PRN #6.7 g 09/19/20 [Rx] cephalexin 500 mg PO BID 5 Days #10 cap 09/19/20 [Rx] levalbuterol HCl 1.25 mg NEB TIDRESP 30 Days #270 ml 09/19/20 [Rx] nebulizers #1 ea NS 09/19/20 [Rx] prednisone 40 mg PO DAILY 4 Days #8 tab 09/19/20 [Rx] Discharge Plan Discharge Plan Hospital Course: History of Present Illness: Patient is a 80y/o female with a PMH of AAA, HTN, HLD, hypothyroidism, CHF presented for generalized weakness and unable to ambulate due to back pain. Patient was recently admitted at [facility] for UTI and then had to be transferred to [facility] for further management. It was suspected that patient might have an enlarged AAA but U/S there showed it to be 2 cm and on surgical intervention was needed. Patient is supposed to have minor back procedure on 09/27/[address] Murrell. She was discharged from [facility] and then came to ED here due to generalized weakness and unable to be taken care of at home. ED work-up - Labs: hgb 11.2 - Abd/CXR: Air-Filled distended small bowel loops and up to 6.7 cm air-filled distended large bowel loops and rectum suspicious for mild ileus. An average amount of fecal material is seen within the large bowel loops and rectum. Mild cardiomegaly and mild diffuse prominence of the pulmonary vascularity and interstitial markings. UA: suggestive of infection Plan: start Rocephin, stop IVF, resume home medications. Add duonebs/pulmicort. Give one dose of solumedrol. Wean O2 as tolerated. Remove moreno. PT/OT eval. CM to discuss discharge needs with family. Monitor urine culture and AM labs. Patient Disposition: 06 HOME HEALTH SERVICE Condition: Stable Health Concerns: Post Hospitalization: new medications and changes needed to prevent readmission or further decline. Pt educated and given instructions on all concerns. Plan of Treatment: Continue with present treatment and follow up plan. Pt is to keep follow up appointment as instructed and take medications as ordered. Prescriptions: New prednisone 20 mg Tablet 40 mg PO DAILY 4 Days Qty: 8 RF: 0 levalbuterol HCl 1.25 mg/3 mL Solution For Nebulization 1.25 mg NEB TIDRESP 30 Days Qty: 270 RF: 0 (DME) nebulizers Misc See Rx Instructions .ROUTE .MEDSUPPLY Qty: 1 RF: 0 albuterol sulfate 90 mcg/actuation HFA aerosol inhaler 2 puff inhalation Q4-6H PRN (Reason: shortness of breath or wheezing) Qty: 6.7 RF: 0 cephalexin 500 mg capsule 500 mg PO BID 5 Days Qty: 10 RF: 0 Continued atorvastatin 80 mg tablet 80 mg PO HS RF: 0 amlodipine 5 mg tablet 5 mg PO DAILY RF: 0 bumetanide 1 mg tablet 1 mg PO DAILY RF: 0 metoprolol succinate 25 mg tablet extended release 24 hr 25 mg PO DAILY RF: 0 levothyroxine [Synthroid] 112 mcg tablet 112 mcg PO QAM RF: 0 pregabalin 150 mg capsule 150 mg PO BID RF: 0 Follow ups/Referrals Follow ups/Referrals: JORDY BECKMAN [Primary Care Provider] - 09/21/20 10:45 am Instructions Instructions: Home Oxygen Use, Adult, Understanding Your Risk for Falls, Chronic Obstructive Pulmonary Disease, [id number], Urinary Tract Infection, Adult, [id number], How to Use a Walker, Hypertension, [id number] Stand Alone Forms: Excuse From Work or School, Precautions for COVID19, Patient Portal, Social Distancing
== END 2020-09-19 14:50 | disposition home health service (06) ==
LOC: ER 21:10 → MED/SURG 21:10
PROVIDERS: ADMIT Internal Medicine; ATTEND Internal Medicine
DX: R53.1 Weakness; R26.2 Difficulty in walking, not elsewhere classified; N39.0 Urinary tract infection, site not specified; M41.126 Adolescent idiopathic scoliosis, lumbar region; Z66 Do not resuscitate; M47.816 Spondylosis without myelopathy or radiculopathy, lumbar region; J44.1 Chronic obstructive pulmonary disease with (acute) exacerbation; I10 Essential (primary) hypertension; Z20.828 Contact with and (suspected) exposure to other viral communicable diseases; E03.8 Other specified hypothyroidism